=== PATIENT | male | born 1950 | race Caucasian/White ===

== ENCOUNTER 2023-01-25 19:41 | Inpatient (IN) | payer MEDICARE, OTHER ==
[~2023-01-25] VITALS: Ht 175.3 cm; Wt 72.5 kg
[2023-01-25 20:45] LABS: BASOPHILS ABSOLUTE AUTO 0.02 K/mm3 (0.00-0.23); BASOPHILS PERCENT AUTO 0 % (0-2); EOSINOPHILS PERCENT AUTO 0 % (0-6); Hematocrit 45.2 % (37.0-53.0); Hemoglobin 15.4 g/dL (13.5-17.5); IMMATURE GRAN ABSOLUTE AUTO 0.03 K/mm3 (0.00-0.10); IMMATURE GRAN PERCENT AUTO 0 % (0-1); LYMPHOCYTES ABSOLUTE AUTO 1.03 K/mm3 (0.84-5.20); LYMPHOCYTES PERCENT AUTO 9 % (21-46); MONOCYTES ABSOLUTE AUTO 1.25 K/mm3 (0.16-1.47); MONOCYTES PERCENT AUTO 11 % (4-13); Mean Corpuscular HGB 31.9 pg (26.0-34.0); Mean Corpuscular HGB Conc 34.1 g/dL (31.5-36.5); Mean Corpuscular Volume 94 fL (80-100); Mean Platelet Volume 11.2 fL (9.1-12.4); NEUTROPHILS ABSOLUTE AUTO 8.84 K/mm3 (1.96-9.15); NEUTROPHILS PERCENT AUTO 79 % (41-73); Platelet Count 300 K/mm3 (150-400); RDW Standard Deviation 52.3 fL (35.1-46.3); Red Blood Cell Count 4.83 M/mm3 (4.30-5.90); White Blood Cell Count 11.17 K/mm3 (4.00-11.30)
[2023-01-25 20:57] LABS: Ethanol (Alcohol), Blood, Med <3 mg/dL
[2023-01-25 21:23] LABS: Alanine Aminotransfer (ALT/SGP 97 U/L (12-78); Albumin, Blood 3.4 g/dL (3.4-5.0); Albumin/Globulin Ratio 0.9 (0.8-1.8); Alk Phos 57 U/L (50-136); Anion Gap 11 mmol/L (6-16); Aspartate Aminotrans (AST/SGOT 232 U/L (12-37); Bilirubin, Total 1.4 mg/dL (0.1-1.0); Blood Urea Nitrogen 28 mg/dL (8-24); Bun/Creatinine Ratio 13.5 (12.0-20.0); CO2, Blood 23 mmol/L (21-32); Calcium, Blood 9.1 mg/dL (8.5-10.1); Chloride, Blood 107 mmol/L (98-108); Creatinine, Blood 2.07 mg/dL (0.60-1.20); Globulin, Blood 3.8 g/dL (2.2-4.0); Glomerular Filtration Rate 34 (60-); Glucose, Blood 130 mg/dL (70-99); Potassium, Blood 3.6 mmol/L (3.5-5.5); Sodium, Blood 141 mmol/L (136-145); Total Protein, Blood 7.2 g/dL (6.4-8.2)
[2023-01-25 21:25] LABS: Acetaminophen, Random <2.0 ug/mL (10.0-30.0)
[2023-01-25] MEDS ORDERED: FLUO10 PO (22:05)
[2023-01-25] MEDS ORDERED: FENOFIBRATE PO (22:06)
[2023-01-25 23:50] LABS: International Normalized Ratio 1.14; Prothrombin Time Results 11.9 Sec (9.7-11.5)
[2023-01-26] VITALS (75 sets, daily range): BP systolic 47–170; BP diastolic 18–136
[2023-01-26 00:34] LABS: Bun/Creatinine Ratio 15.8 (12.0-20.0); Calcium, Blood 8.4 mg/dL (8.5-10.1); Creatinine, Blood 1.84 mg/dL (0.60-1.20)
[2023-01-26 01:09] LABS: Magnesium, Blood 1.7 mg/dL (1.6-2.4); Phosphorus, Blood 3.3 mg/dL (2.5-4.9)
[2023-01-26 04:11] LABS: BASOPHILS ABSOLUTE AUTO 0.03 K/mm3 (0.00-0.23); BASOPHILS PERCENT AUTO 0 % (0-2); EOSINOPHILS ABSOLUTE AUTO 0.01 K/mm3 (0.00-0.68); EOSINOPHILS PERCENT AUTO 0 % (0-6); Hematocrit 39.2 % (37.0-53.0); Hemoglobin 13.4 g/dL (13.5-17.5); IMMATURE GRAN ABSOLUTE AUTO 0.03 K/mm3 (0.00-0.10); IMMATURE GRAN PERCENT AUTO 0 % (0-1); LYMPHOCYTES PERCENT AUTO 21 % (21-46); MONOCYTES ABSOLUTE AUTO 0.66 K/mm3 (0.16-1.47); MONOCYTES PERCENT AUTO 8 % (4-13); Mean Corpuscular HGB 32.2 pg (26.0-34.0); Mean Corpuscular HGB Conc 34.2 g/dL (31.5-36.5); Mean Corpuscular Volume 94 fL (80-100); NEUTROPHILS ABSOLUTE AUTO 5.99 K/mm3 (1.96-9.15); NEUTROPHILS PERCENT AUTO 70 % (41-73); Platelet Count 206 K/mm3 (150-400); RDW Coefficient Variation 14.9 % (11.7-14.2); RDW Standard Deviation 51.9 fL (35.1-46.3); Red Blood Cell Count 4.16 M/mm3 (4.30-5.90); White Blood Cell Count 8.52 K/mm3 (4.00-11.30)
[2023-01-26 04:27] LABS: International Normalized Ratio 1.24; Prothrombin Time Results 12.9 Sec (9.7-11.5)
[2023-01-26 04:37] LABS: Albumin, Blood 2.5 g/dL (3.4-5.0); Albumin/Globulin Ratio 0.8 (0.8-1.8); Bun/Creatinine Ratio 19.2 (12.0-20.0); Calcium, Blood 8.2 mg/dL (8.5-10.1); Creatinine, Blood 1.46 mg/dL (0.60-1.20); Total Protein, Blood 5.5 g/dL (6.4-8.2)
[2023-01-26 07:12] LABS: U Amphetamine Screen Not Detected; U Barbituate Screen Not Detected; U Benzodiazapine Screen DETECTED; U Buprenorphine Screen Not Detected; U Cannabinoids Screen DETECTED; U Cocaine Screen Not Detected; U Methadone Screen Not Detected; U Methamphetamine Screen Not Detected; U Opiates Screen Not Detected; U Oxycodone Screen Not Detected; U Phencyclidine Screen Not Detected
--- NOTE | 2023-01-26 07:26 | NUR ---
END OF SHIFT SUMMARY PT COOPERATIVE WITH CARE. NO RESTRAINTS AT THIS TIME. PT DROWSY WHEN TRANSFERED TO ICU ROOM, HAS BECOME MORE ORIENTED SINCE. THIS AM SPEECH IS NOT SLURRED. BARRIGA CATHETER PLACED D/T PT UNSTABLE ON FEET AND STATES HE CAN NOT URINATE LAYING IN BED. MULTIPLE TRIES FOR URINE FAILED. BLADDER SCAN SHOWED 745 MLS THIS AM. TEA COLORED URINE PRESENT UPON INSERTION OF CATH. PRECEDEX AT 0.4 MCG THIS AM. KCL RUNNING WITH TKO TO POWER GLIDE. ACETALCYSTEIN 3RD BAG RUNNING AT THIS TIME. SEE FULL ASSESSMENT AND PRIOR RN NOTES FOR MORE INFORMATION. REPORT GIVEN TO AM RN.
[2023-01-26 08:20] LABS: Influenza A, PCR NEGATIVE (NEGATIVE); Influenza B, PCR NEGATIVE (NEGATIVE); Resp Syncytial Virus, PCR NEGATIVE (NEGATIVE); SARS-Cov-2 (COVID-19) PCR, MMC NEGATIVE (NEGATIVE)
--- NOTE | 2023-01-26 09:48 | NUR ---
HYPOTENSION PT HAS BEEN HYPOTENSIVE WITH SYSTOLIC IN THE 50S AND 60S, MAP IN THE 50S. WHEN PT IS WOKEN UP HIS SBP GOES UP TO THE LOW 100S, BUT DROPS AGAIN ONCE HE FALLS ASLEEP. DR. CASTRO NOTIFIED AND ORDERED 500ML NS BOLUS. BP IMPROVED WITH BOLUS, BUT SLOWLY DROPPED AGAIN AFTER IT COMPLETED. DR. CASTRO NOTIFIED AND ORDERED 1L NS BOLUS WITH MAINTENANCE FLUIDS AFTER AT 125ML/HR. POISON CONTROL CALLED AND GIVEN UPDATE. NO NEW RECOMMENDATIONS AT THIS TIME.
--- NOTE | 2023-01-26 11:57 | NUR ---
REASSESSMENT PT HAS CONTINUED TO REST THROUGHOUT THE MORNING. HE WAKES TO VOICE, IS ORIENTED TO SELF AND PLACE, THOUGHT THE YEAR WAS 2021. HE HAS BEEN COOPERATIVE WITH NURSING STAFF, BUT REFUSING A LOT OF CARES. HE WAS SHIVERING AT ONE POINT, BUT THAT RESOLVED WITH WARM BLANKETS AND PT STATED HE WAS COLD AT THAT TIME. WHEN HE HAS HELD HIS ARMS UP THERE DOES APPEAR TO BE A SLIGHT TREMOR, BUT UNABLE TO DO CIWAA BECAUSE PT DOESN'T WANT TO ANSWER THE QUESTIONS. PRECEDEX HAS REMAINED OFF SINCE THE START OF SHIFT. HR IN THE 50S, SINUS, BP IMPROVED AFTER BOLUS AND START OF MAINTENANCE FLUIDS. CURRENTLY MAP 67. CYRIL WAS VERY DARK AT START OF SHIFT AND IS GETTING SUPERVISOR WOOL SHEARING. LUNGS REMAIN CLEAR, SPO2 99% ON RA. OFFERED PT TO TRIAL SOME WATER, BUT PT REFUSED. PT STILL REFUSING TO ANSWER ANY OF THE SUICIDE ASSESSMENT QUESTIONS. REMAINS ON 1:[address] HERNANDEZ ROUNDED ON PT, BUT PT WOULDN'T TALK WITH HIM EVEN THOUGH HE INITALLY SAID HE WOULD. DR. HERNANDEZ REPORTS THOUGH THAT PT DID SAY HE TOOK THE XANAX TO . PT'S HEATHER BRUNO CALLED AND PT GAVE VERBAL PERMISSION TO TALK TO HER SO SHE WAS GIVEN UPDATE. HER INFORMATION WAS PROVIDED TO DR. HERNANDEZ WELL.
[2023-01-26 13:12] LABS: Bun/Creatinine Ratio 18.6 (12.0-20.0); Calcium, Blood 7.8 mg/dL (8.5-10.1); Creatinine, Blood 1.29 mg/dL (0.60-1.20); Potassium, Blood 3.1 mmol/L (3.5-5.5)
--- NOTE | 2023-01-26 13:23 | NUR ---
RESTRAINTS PT WOKE UP AND STARTED SAYING HE WANTS TO LEAVE. HOSPITAL HOLD EXPLAINED TO PT AND THAT IF HE LEAVES THE POLICE WILL BE CALLED TO BRING HIM BACK. PT RESPONDED "IF THEY CAN FIND ME." PT CONTINUED TO GET MORE AGITATED, SAYING HE DOESN'T WANT ANY CARE, HE REFUSES EVERYTHING, HE WANTS TO BE DNR. EXPLAINED TO PT THAT WITH THE HOLD HE DOESN'T HAVE THE RIGHT TO REFUSE ALL CARE. PT STATES THAT HE WILL NOT EAT OR DRINK ANYTHING THEN SO HE WILL OF DEHYDRATION. DR. CASTRO ROUNDED ON PT DURING THIS AND GAVE ORDERS TO RESTART PRECEDEX, WHICH IT WAS. PT REALIZED HE HAD FLUDIS INFUSING THROUGH THE IV THEN THOUGH AND REACHED TO PULL OUT HIS IVS. PT'S ARM HELD BACK FROM IV, BUT PT KEPT ACTIVELY TRYING TO REACH FOR IVS, BECOMING MORE AGITATED, TOLD STAFF WE CAN TRY TO RESTRAIN HIM, BUT IT'S NOT GOING TO BE PRETTY. PT DOES SAY THAT HE DOESN'T WANT TO HURT ANYBODY, BUT HE IS ADAMANT HE DOES NOT WANT ANY CARE BECAUSE HE WANTS TO . SECURITY NOTIFIED BECAUSE PT KEPT REACHING FOR IVS AND RESISTING WHEN ARMS PULLED BACK. PT PLACED IN LOCKED CUFFS DUE TO HIS STRENGTH. PT'S HEATHER BRUNO NOTIFIED. CONTINUING TO MONITOR.
[2023-01-26 14:01] LABS: Albumin, Blood 2.2 g/dL (3.4-5.0); Albumin/Globulin Ratio 0.8 (0.8-1.8); Bilirubin, Direct 0.4 mg/dL (0.0-0.3); Bilirubin, Indirect 0.5 mg/dL (0.1-0.7); Bilirubin, Total 0.9 mg/dL (0.1-1.0); Globulin, Blood 2.7 g/dL (2.2-4.0); Total Protein, Blood 4.9 g/dL (6.4-8.2)
--- NOTE | 2023-01-26 16:59 | NUR ---
SHIFT SUMMARY PT RESTED THROUGH THE MORNING WITHOUT ANY PRECEDEX BUT THEN BECAME VERY AGITATED AND TEARFUL AROUND NOON WANTING TO STOP ALL TREATMENT AND LEAVE THE HOSPITAL. PT TRIED TO PULL HIS IVS OUT AND ENDED UP REQUIRING WRIST RESTRAINTS. PRECEDEX WAS RESTARTED, BUT PT'S BP DROPS WHEN IT IS TOO HIGH SO IT HAD TO BE TITRATED DOWN TO A LOW DOSE THROUGHOUT THE AFTERNOON. AFTER TURNING PT AT 1600 HE BECAME VERY AGITATED AGAIN, SITTING UP WITH HIS ARMS STILL RESTRAINED AND THREATENING TO TRY AND FLIP THE BED OVER IN ORDER TO HURT HIMSELF. PT IS NOT REDIRECTABLE. EVEN IN HIS AGITATION HE APPEARS VERY SAD WITH TEARS IN HIS EYES HE IS TALKING ABOUT HOW HE WANTS TO . SECURITY NOTIFIED AND PT PULLED BACK UP IN BED, WHICH PT PROMPTLY SCOOTED BACK TO THE FOOT OF THE BED. PT ENDED UP REQUIRING 4 POINT RESTRAINTS IN ORDER TO KEEP HIM SAFE. PRN ZYPREXA GIVEN WELL TO HELP RELAX PT. 1:1 SITTER REMAINS AT THE BEDSIDE. LUNGS REMAIN CLEAR, RA, SR TO SB WITH RATE IN THE 50S AND 60S. BARRIGA DRAINING YELLOW URINE. CONTINUING TO MONITOR.
[2023-01-26 22:39] LABS: Bun/Creatinine Ratio 18.9 (12.0-20.0); Calcium, Blood 8.1 mg/dL (8.5-10.1); Creatinine, Blood 1.11 mg/dL (0.60-1.20); Potassium, Blood 3.4 mmol/L (3.5-5.5)
[2023-01-27] VITALS (53 sets, daily range): BP systolic 101–170; BP diastolic 59–96
[2023-01-27 00:21] LABS: Source, Urine Foley catheter
[2023-01-27 00:25] LABS: Bilirubin, Urine Neg (Neg); Blood, Urine 1+ (Neg); Glucose Qualitative, Urine Neg (Neg); Ketones, Urine Neg (Neg); Leukocyte Esterase, Urine 3+ (Neg); Nitrite, Urine Neg (Neg); Protein, Urine 1+ (Neg); Urobilinogen, Urine 2+ (Normal)
[2023-01-27 00:40] LABS: Appearance, Urine Hazy (Clear); Color, Urine Yellow (P-Yellow)
[2023-01-27 00:42] LABS: Bacteria Mod /hpf; Mucus Light (0-Heavy); Red Blood Cells, Urine 0-2 /hpf (0-2); Squamous Epithelial Cells Few /hpf (Few); White Blood Cells, Urine 25-50 /hpf (0-5)
--- NOTE | 2023-01-27 05:15 | NUR ---
SHIFT SUMMERY PT HAS BEEN INTERMITTENTLY AGITATED, CONSISTANTLY RESISTANT/NON-COMPLIANT/REFUSING CARE, OCCASIONALLY VERBALLY INAPPROPRIATE AND PERIODICALLY THREATENING VIOLENCE. 1:1 SITTER EV[place]ON PRESENT THIS SHIFT. PT CONTININUES IN RESTRAINTS, SEE CHARTING. PT DAUGHTER CALLED EARLIER IN THE SHIFT AND I FACILITATED A PHONE CONVERSATION FOR THEM. PT HAS STATED THAT HE WANTS TO MULTIPLE TIMES. HE ALSO STATED THAT HE WOULD USE VIOLENCE OR ANY MEANS NECESSARY TO LEAVE THIS HOSPITAL. PT HAS REFUSED MOUTHCARE AND REPOSITIONING. HE BECOMES VERY HOSTILE AND AGITIATED W/ANY STIMULATION. HE HAS BEEN ON A PRECEDEX DRIP THIS SHIFT W/PRN ZYPREXA GIVEN ONCE. HE HAS BEEN SB ON THE BOILER ATTENDANT W/BP WNL. OXYGEN SAT >95% ON ROOM AIR. HE HAS BEEN AFEBRILE. POISON CONTROL HAS CALLED AND BEEN UPDATED ON PT CONDITION. PT IS ALERT AND ORIENTED TO SELF AND SITUATION. HE OFTEN REFUSES TO ANSWER QUESTIONS AND LIKES TO INSTIGATE ARGUMENTS WITH STAFF WHEN ENGAGED IN CONVERSATION. PT HAS BARRIGA CATH INTACT PATENT AND DRAINING TO GRAVITY. HE HAS DENIED PAIN THIS SHIFT. PT DAUGHTER STATED THAT SHE WOULD COME AND VISIT PT LATER TODAY.
[2023-01-27 06:38] LABS: BASOPHILS ABSOLUTE AUTO 0.02 K/mm3 (0.00-0.23); BASOPHILS PERCENT AUTO 0 % (0-2); EOSINOPHILS ABSOLUTE AUTO 0.19 K/mm3 (0.00-0.68); EOSINOPHILS PERCENT AUTO 3 % (0-6); IMMATURE GRAN ABSOLUTE AUTO 0.01 K/mm3 (0.00-0.10); IMMATURE GRAN PERCENT AUTO 0 % (0-1); LYMPHOCYTES ABSOLUTE AUTO 1.75 K/mm3 (0.84-5.20); LYMPHOCYTES PERCENT AUTO 30 % (21-46); MONOCYTES ABSOLUTE AUTO 0.41 K/mm3 (0.16-1.47); MONOCYTES PERCENT AUTO 7 % (4-13); Mean Corpuscular HGB 32.2 pg (26.0-34.0); Mean Corpuscular HGB Conc 34.3 g/dL (31.5-36.5); Mean Corpuscular Volume 94 fL (80-100); Mean Platelet Volume 11.3 fL (9.1-12.4); NEUTROPHILS ABSOLUTE AUTO 3.45 K/mm3 (1.96-9.15); NEUTROPHILS PERCENT AUTO 59 % (41-73); Platelet Count 185 K/mm3 (150-400); RDW Coefficient Variation 14.8 % (11.7-14.2); RDW Standard Deviation 51.6 fL (35.1-46.3); Red Blood Cell Count 3.73 M/mm3 (4.30-5.90); White Blood Cell Count 5.83 K/mm3 (4.00-11.30)
[2023-01-27 07:01] LABS: Albumin, Blood 2.1 g/dL (3.4-5.0); Albumin/Globulin Ratio 0.8 (0.8-1.8); Bilirubin, Total 0.7 mg/dL (0.1-1.0); Bun/Creatinine Ratio 19.8 (12.0-20.0); Calcium, Blood 8.2 mg/dL (8.5-10.1); Creatinine, Blood 1.01 mg/dL (0.60-1.20); Globulin, Blood 2.5 g/dL (2.2-4.0); Potassium, Blood 3.9 mmol/L (3.5-5.5); Total Protein, Blood 4.6 g/dL (6.4-8.2)
--- NOTE | 2023-01-27 07:47 | NUR ---
CARE OF PATIENT ASSUMED AT 0700. PT SEDATED ON PRECEDEX AT 0.5MCG/KG/HR. D51/2 NS AT 75. PT WAS INITIALLY SLEEPING, PT OPENED HIS EYES, WHEN APPROCHED AND ASKED PT IF HE WAS THIRSTY OR HUNGRY, PT STATED "I PREFER TOTAL SILENCE". ATTEMPTED TO DISCUSS PLAN OF CARE WITH PT INCLUDING WEANING PRECEDEX OFF AND REMOVING RESTRAINTS. PT STATED, "NO, I'M FINE JUST LIKE THIS, IM NOT GOING TO EAT OR DRINK, IM JUST GOING TO LAY HERE AND ". PT REFUSED TO ANSWER MOST QUESTIONS, BUT STATED HE DIDNT WANT TO BE "POKED". PT SINUS NATALI IN HIGH 40'S WHILE SLEEPING, 50'S WHILE AWAKE. BP STABLE. BARRIGA CATH PATENT DRAINING DARK YELLOW URINE. POTASSIUM WAS REPLACED ON TAR DISTILLATION SUPERVISOR. POWERGLIDE AND PERIPHERAL IV'S PATENT.
--- NOTE | 2023-01-27 08:46 | NUR ---
I SPOKE WITH THE PATIENT FOR 45MIN. RESTRAINTS WERE REMOVED, PT STATED THAT HE WOULDNT REMOVE HIS IV'S OR BARRIGA ON HIS OWN, AND THAT HE WOULDNT TRY AND LEAVE THE HOSPITAL. PT IN EMOTIONAL DISTRESS, CRYING/TEARFUL OVER THE PASSING OF HIS . HE IS ANGRY AT HIS DAUGHTER FOR CALLING THE POLICE. PT ASKED WHAT HE COULD DO TO GET OUT OF THE HOSPITAL, HE WAS INFORMED HE WOULD NEED TO SPEAK WITH THE PSYCHIATRIST. PT STATED "I WILL SAY WHAT EVER THE F I NEED TO TO GET OUT OF HERE, THEN IM GOING TO KILL MYSELF AND THERE ISNT ANYTHING ANYONE CAN DO TO STOP ME".
--- NOTE | 2023-01-27 09:02 | NUR ---
POISON CONTROL CALLED AND GIVEN AN UPDATE; NO FURTHER RECOMMENDATIONS FROM THEM. DR SPENCER IN TO SEE PT, PT REFUSED TO SPEAK WITH HER OR LET HER EXAM HIM. DR HERNANDEZ/PSYCHIATRY AT BEDSIDE NOW. PT HAS 1:1 SITTER.
[2023-01-27] MEDS ORDERED: TRAZ50 PO (10:32)
[2023-01-27] MEDS ORDERED: OMEP20ER PO (10:32)
[2023-01-27] MEDS ORDERED: AMLO5 PO (10:33)
--- NOTE | 2023-01-27 10:48 | NUR ---
MED LIST UPDATED, INFORMATION OBTAINED FROM PT'S DAUGHTER. DR HERNANDEZ IS RECOMMNEDING IN PATIENT CARE; FIELD BROOMER AND MDS NURSE NOTIFED. PT STATED HE DRINKS 1/2 LITER+ VODKA DAILY, CIWA 8. DR SPENCER NOTIFED, ATIVAN ORDERED PRN. PT IS ALLOWING SOME CARE AND REFUSING SOME CARE WELL. PT IS DRINKING WATER AND HAS ASKED FOR WARM BLANKETS WHICH WERE PROVIDED.
--- NOTE | 2023-01-27 13:07 | NUR ---
PT REFUSED SHOWER/BEDBATH, LUNCH, ORAL CARE. PT DID ALLOW VITALS TO BE TAKEN, AND STATES HE WILL TAKE HIS HOME MEDS. PT DECLINED LIBRIUM. 1:1 SITTER REMAINS AT BEDSIDE.
--- NOTE | 2023-01-27 14:11 | NUR ---
PATIENT MAKING INAPPROPRIATE SEXUAL COMMENTS TOWARD SITTER. PT STATES, "I'M GOING TO SHIT THIS BED, AND YOU'LL HAVE TO CLEAN IT UP".
--- NOTE | 2023-01-27 15:09 | NUR ---
PT ESCALATING; PT HELD PILLOW OVER HIS HEAD, PILLOW REMOVED. PT THEN THREATENED TO SUFFICATE HIMSELF BETWEEN BED RAILING AND MATTRESS. 1MG INITIALLY ATIVAN PULLED BUT NOT GIVEN PT MADE THREATENING REMARKS; HARMING STAFF IF WE GOT TOO CLOSE TO HIM. PT ABLE TO STATE NAME AND YEAR, BUT MAKING SEVERAL IRRATIONAL STATEMENTS, PT RED AND SHAKING W FIST CLENCHED. PT AGAIN STATING THAT HE WAS GOING TO KILL HIMSELF AND THERE WASNT ANYTHING WE COULD DO TO STOP HIM. PT FORGETFUL, DID NOT REMEMBER ME, HIS PRIMARY RN WHO HAS SPENT HOURS IN HIS ROOM TODAY. PT ANGRY THAT HIS PCP HAS NOT BEEN BY TO SEE HIM(WE SPOKE ABOUT WHY HIS PCP HASNT BEEN IN TODAY), PT DOES NOT REMEMBER DR SPENCER COMING IN TODAY. PT STATES HE'S UPSET THAT HIS FARM IS DYING AT HOME AND NO ONE IS TAKING CARE OF IT, AND IN THE SAME RUN-ON SENTENCE HE STATES THAT HE IS GOING TO KILL HIMSELF. DR SPENCER CALLED, FULL UPDATE GIVEN ATIVAN ORDERS CHANGED TO 1-2 Q 1HR. PRECEDEX TO BE RESTARTED. DR HERNANDEZ CALLED AND UPDATED WELL. DR HERNANDEZ RECOMMENDING ATIVAN FOR SEVERE AGITATION. SECURITY CALLED TO BE AT BEDSIDE TO BE AVAILABLE IF NEEDED. PT ALLOWED ME TO ADMINISTER ATIVAN 2MG AND ALLOWED ME TO START PRECEDEX GTT. JUST PRIOR TO IV ADMINISTRATION PATIENT STATED, "I PROMISE I WILL NOT HURT YOU, YOU CAN GIVE ME THE MEDICATION." PT THEN STARTED CRYING ABOUT HIS DENITA WHO IN NOVEMBER, PATIENT ALLOWED TO CRY AND TALK ABOUT HIS GRIEF. PT THEN ALLOWED MYSELF AND ANOTHER RN TO GIVE A BEDBATH. LINEN'S CHANGED. CATH CARE COMPLETE.
--- NOTE | 2023-01-27 17:38 | NUR ---
PT SLEEPING, AWAKENS TO VOICE, RASS 0 TO -1. HEATRATE IN THE 50'S, OCC DROPS TO 48. BP STABLE. SATS 96% ON RA. PRECEDEX GTT DECREASED FROM 0.5MCG TO 0.3MCG. PT HAS BEEN OUT OF RESTRAINTS SINCE 0800 THIS AM. D51/2NS CONTINUES AT 75CC/HR. DR HERNANDEZ CALLED TO CHECK ON PT AND GIVEN UPDATE. CIWA 6-8 TODAY, MOSTLY FOR AGITATION AND TREMORS. 1:1 SITTER REMAINS AT BEDSIDE.
--- NOTE | 2023-01-27 19:19 | NUR ---
ASSUMPTION OF CARE PT IS CURRENTLY RESTING COMFORTABLY W/EYES CLOSED. 1:1 SITTER AT BEDSIDE, FRANCINE. PT IS SB ON THE TEACHER PRESCHOOL, BP WNL. NO ACUTE DISTRESS NOTED AT THE CURRENT TIME. WILL CONTINUE TO MONITOR.
--- NOTE | 2023-01-27 19:34 | NUR ---
ASKED PT IF HE NEEDED ANYTHING AT THIS TIME, PT STATED "JUST PEACE AND QUIET". 1:1 SITTER REMAINS AT BEDSIDE. WILL CONTINUE TO MONITOR.
--- NOTE | 2023-01-27 20:51 | NUR ---
PT DAUGHTER JONATHAN CALLED AND WAS UPDATED ON PT CONDITION. DAUGHTER EXPRESSED GRATITUDE FOR CARE GIVEN TO HER FATHER.
--- NOTE | 2023-01-27 21:43 | NUR ---
PT BECOMING INCREASINGLY AGITATED AND TEARFUL. HE IS QUITE ANGRY. STATED THAT I WAS USELESS AND THAT HE WOULD FINISH THE JOB OF KILLING HIMSELF SOON HE WAS ABLE. PT THREATEND TO PULL OUT HIS IV'S AND I EDUCATED HIM THAT IF HE DID THAT HE WOULD BE PLACED BACK INTO RESTRAINTS PER MD ORDER. HE WAS GIVEN PRN ATIVAN FOR ETOH WDRAWAL HE IS ALSO TREMULOUS W/SOME CONFUSION. PRECEDEX DRIP WAS INCREASED-SEE FLOWSHEET. I APPEMPTED TO CALM AND REDIRECT PATIENT BUT HE IS NOT RECEPTIVE TO ENCOURAGEMENT OR EMOTIONAL SUPPORT/EMPATHY AT THIS TIME. MCKENNA ESCAMILLA REMAINS AT BEDSIDE 1:1.
[2023-01-28] VITALS (23 sets, daily range): BP systolic 119–168; BP diastolic 71–110
--- NOTE | 2023-01-28 00:19 | NUR ---
PT HAS BECOME MORE CALM SINCE GETTING PRN MEDICATION-SEE EMAR. HE STILL REFUSES TO EAT OR DRINK ANYTHING STATING HE IS ON A "HUNGER STRIKE". HE IS RESTING COMFORTABLY W/EYES CLOSED. 1:1 SITTER AT BEDSIDE. VSS
[2023-01-28 05:10] LABS: BASOPHILS ABSOLUTE AUTO 0.04 K/mm3 (0.00-0.23); BASOPHILS PERCENT AUTO 1 % (0-2); EOSINOPHILS ABSOLUTE AUTO 0.45 K/mm3 (0.00-0.68); EOSINOPHILS PERCENT AUTO 7 % (0-6); Hematocrit 36.7 % (37.0-53.0); Hemoglobin 12.6 g/dL (13.5-17.5); IMMATURE GRAN ABSOLUTE AUTO 0.02 K/mm3 (0.00-0.10); IMMATURE GRAN PERCENT AUTO 0 % (0-1); LYMPHOCYTES ABSOLUTE AUTO 1.74 K/mm3 (0.84-5.20); LYMPHOCYTES PERCENT AUTO 27 % (21-46); MONOCYTES ABSOLUTE AUTO 0.43 K/mm3 (0.16-1.47); MONOCYTES PERCENT AUTO 7 % (4-13); Mean Corpuscular HGB 32.2 pg (26.0-34.0); Mean Corpuscular HGB Conc 34.3 g/dL (31.5-36.5); Mean Corpuscular Volume 94 fL (80-100); Mean Platelet Volume 11.6 fL (9.1-12.4); NEUTROPHILS ABSOLUTE AUTO 3.71 K/mm3 (1.96-9.15); NEUTROPHILS PERCENT AUTO 58 % (41-73); Platelet Count 179 K/mm3 (150-400); RDW Coefficient Variation 14.4 % (11.7-14.2); RDW Standard Deviation 49.2 fL (35.1-46.3); Red Blood Cell Count 3.91 M/mm3 (4.30-5.90); White Blood Cell Count 6.39 K/mm3 (4.00-11.30)
[2023-01-28 06:00] LABS: Albumin, Blood 2.2 g/dL (3.4-5.0); Albumin/Globulin Ratio 0.8 (0.8-1.8); Bilirubin, Total 0.9 mg/dL (0.1-1.0); Bun/Creatinine Ratio 14.6 (12.0-20.0); Calcium, Blood 8.4 mg/dL (8.5-10.1); Creatinine, Blood 0.89 mg/dL (0.60-1.20); Globulin, Blood 2.7 g/dL (2.2-4.0); Potassium, Blood 3.3 mmol/L (3.5-5.5); Total Protein, Blood 4.9 g/dL (6.4-8.2)
--- NOTE | 2023-01-28 06:22 | NUR ---
PT HAS HAD NO ACUTE CHANGES OVERNIGHT. VSS, LABILE EMOTIONAL STATE WITH CLEAR INTENT AND PLANS ON SUICIDE VOICED. PRECEDEX INFUSING AND PRN MEDICATION USED WELL-SEE EMAR. 1:1 SITTER AT BEDSIDE.
--- NOTE | 2023-01-28 08:23 | NUR ---
CARE OF PT ASSUMED AT 0700. PT SLEEPING, AWAKENS TO VOICE, FOLLOWS DIRECTIONS, BUT NON-VERBAL AT THIS TIME. HEART RATE 40'S, PRECEDEX DECREASED FROM 0.5MCG TO 0.3MCG. PT TURNING HIMSELF FROM SIDE TO SIDE IN BED. D51/2NS AT 75CC/HR. POTASSIUM RIDER 40MEQ INFUSING. PT WITH SOME HTN, HAS HOME NORVASC ORDERED. PT HAS BEEN REFUSING SOME CARE, REFUSING MEALS, WILL OCCASIONALLY DRINK WATER. DR SPENCER AT BEDSIDE THIS AM. 1:1 SITTER AT BEDSIDE. SATS 97% ON RA, AFEBRILE. BARRIGA PATENT AND DRAINING TO GRAVITY.
--- NOTE | 2023-01-28 10:42 | NUR ---
PT IS NOW SPEAKING. PT CALM AND ALLOWING FOR SOME CARE. PT REFUSED LOVENOX AND NORVASC, "I WILL TAKE MY NORVASC WHEN YOU GIVE ME ALL OF MY HOME MEDS". PT DECLINED MEAL. PT STATED, "I PLAN TO BE ON MUCH BETTER BEHAVIOR TODAY, YOU'RE GOING TO LIKE ME TODAY." PT DECLINED FLUIDS OTHER THAN WATER AND MADE A JOKE THAT HE WOULD EXCEPT A DOUBLE SHOT OF VODKA. CIWA 0. PRECEDEX STOPPED AT 1040. DR HERNANDEZ AT BEDSIDE AND IS GOING TO START ZYPREXA S.L. PRN. PT AGREES TO TAKE THE MEDICATION IF HE STARTS "ACTING UP".
--- NOTE | 2023-01-28 12:12 | NUR ---
DR HERNANDEZ AT BEDSIDE FOR OVER 1HR. PT CALM AND COOPERATIVE, VERY TEARFUL. EMOTIONAL SUPPORT/COMFORT PROVIDED.
--- NOTE | 2023-01-28 15:54 | NUR ---
PATIENT MAY HAVE PSYCHIATRIC BED, PAPERS FAXED TO FACILITY BY STRATEGIC PARTNER DEVELOPMENT MANAGER. DR HERNANDEZ AND DR SPENCER UPDATED. PT SLIGHTLY MORE AGITATED, REQUEST TRAVEL RN OR. STRATEGIC PARTNER DEVELOPMENT MANAGER AT BEDSIDE TO GIVE PATIENT UPDATE REGARDING TRAVEL RN OR; PT NOTIFIED THAT REQUEST HAS BEEN MADE WITH COURT HOUSE. IV FLUIDS DC'D PATIENT IS DRINKING WATER. PT STILL REFUSING FOOD. PT DECLINED BATH TODAY. ATTEMPTED TO TAKE OUT BARRIGA, PATIENT REQUEST THAT IT BE LEFT IN SO THAT "I DONT HAVE TO GET OUT OF BED". URINAL OFFERED. WILL LEAVE IN BARRIGA FOR ANOTHER HOUR PATIENT BEGINNING TO BECOME AGITATED AND TEARFUL. 1:1 SITTER REMAINS AT BEDSIDE.
--- NOTE | 2023-01-28 17:10 | NUR ---
DR HERNANDEZ AT BEDSIDE, PATIENT INFORMED THAT THE PLAN IS TO TRANSFER PATIENT TO IN-PATIENT PSYCH FACILITY. PT INITIALLY ANGRY WITH PRESSURED SPEECH, RAISED VOICE, AND SHAKING. PT MORE CALM NOW BUT REMAINS UPSET. VISIBLE TREMORS TO ARMS NOTED, CIWA 5 FOR TREMORS, MILD AGITATION AND ANXIETY. PATIENT AGREED TO TAKE LIBRIUM. LINUS DC'D W/O DIFFICULTY. PT UP IN CHAIR. DR SPENCER CALLED AND GIVEN UPDATE. PT NOW MEDICAL STATUS.
[2023-01-28] MEDS ORDERED: ROSU10TA PO (17:36)
[2023-01-28] MEDS ORDERED: ALLO100 PO (17:36)
[2023-01-28] MEDS ORDERED: LOSA50 PO (17:37)
[2023-01-28] MEDS ORDERED: BUPR150ER PO (17:38)
--- NOTE | 2023-01-28 18:08 | NUR ---
PT BECAME MILDLY AGITATED WHILE SPEAKING ABOUT HIS DAUGHTER. TREMORS PRESENT; PT JOKINGLY ASKED FOR A "VODKA TONIC". ATIVAN OFFERED AND ACCEPTED. ATIVAN 1MG GIVEN. PT UP TO CHAIR AND UP TO TOILET FOR BM. MEDICATION LIST UPDATED AGAIN PT'S DAUGHTER FOUND NEW PRESCRIPTION PILL BOTTLES AT HOME. WILL HAVE AM RN FOLLOW UP WITH PCP REGARDING MED LIST.
[2023-01-28] MEDS ORDERED: METO50ER PO (18:25)
--- NOTE | 2023-01-28 19:26 | NUR ---
PRIOR TO CHANGE OF SHIFT REPORT I SAT WITH PATIENT AND LISTENED WHILE HE SPOKE OF HIS GRIEF AND ANXIETY OVER HIS "FINANCIAL RUIN". PT TEARFUL/CRYING. PT STATES I WAS KIND TO HIM BUT HE'LL "SEE ME IN THE AFTERLIFE, BECAUSE I'M GOING TO DO IT AND THERE IS NOTHING ANYONE CAN DO TO STOP ME. YOU CAN'T HOLD ME FOR EVER. THERE ARE SO MANY WAYS I CAN DO IT. I HAVE BOTTLES OF OXYCODONE, I WILL TAKE SO MANY PILLS AND GO OFF INTO THE [place] AND YOU'LL NEVER FIND ME. I WILL DO IT." DR HERNANDEZ CALLED AND WAS UPDATED. 1:1 SITTER AT BEDSIDE.
--- NOTE | 2023-01-28 21:17 | NUR ---
ASSUMPTION OF CARE: RECEIVED REPORT FROM SPARKLE WRIGHT. PT ALERT AND ORIENTED TO TIME, PERSON, PLACE AND SITUATION. ABLE TO ANSWER QUESTIONS AND MAKE NEEDS KNOWN. PT DENIES ANY SUICIDAL IDEATION WHEN ASKED. DURING CHANGE OF SHIFT HOWEVER, HE STATED TO THE PRIOR RN THAT HE WANTED TO TAKE A HANDFUL OF WHATEVER HE COULD GET HIS HANDS ON AND RUN OUT OF HERE. PT ALSO MAKING STATEMENTS REPEATEDLY STATING "I WISH I WAS ". PT HAS MILD TREMOR BILATERALLY, DENIES ANY HALLUCINATIONS, HEADACHE, N/V. PT ABLE TO TOLERATE PO MEDS WELL. PT ON RA WITH SPO2 >95%. DENIES SOB. PT DENIES ANY PAIN. PT MEDICAL STATUS WITH NO TELEMETRY. NO C/O CHEST PAIN OR PRESSURE. ABLE TO AMBULATE TO THE TOILET IND. 1:1 SITTER REMAINS AT THE DOOR. POWERGLIDE TO RJ, SALINE LOCKED. DAUGHTER CALLED FOR AN UPDATE, PT AGREEABLE TO TALKING TO DAUGHTER AT THIS TIME. BED LOW AND LOCKED.
[2023-01-29 03:27] LABS: BASOPHILS ABSOLUTE AUTO 0.03 K/mm3 (0.00-0.23); BASOPHILS PERCENT AUTO 0 % (0-2); EOSINOPHILS ABSOLUTE AUTO 0.29 K/mm3 (0.00-0.68); EOSINOPHILS PERCENT AUTO 4 % (0-6); Hemoglobin 12.1 g/dL (13.5-17.5); IMMATURE GRAN ABSOLUTE AUTO 0.03 K/mm3 (0.00-0.10); IMMATURE GRAN PERCENT AUTO 0 % (0-1); LYMPHOCYTES ABSOLUTE AUTO 1.58 K/mm3 (0.84-5.20); LYMPHOCYTES PERCENT AUTO 19 % (21-46); MONOCYTES ABSOLUTE AUTO 0.63 K/mm3 (0.16-1.47); MONOCYTES PERCENT AUTO 8 % (4-13); Mean Corpuscular HGB 32.2 pg (26.0-34.0); Mean Corpuscular HGB Conc 34.6 g/dL (31.5-36.5); Mean Corpuscular Volume 93 fL (80-100); Mean Platelet Volume 11.4 fL (9.1-12.4); NEUTROPHILS ABSOLUTE AUTO 5.58 K/mm3 (1.96-9.15); NEUTROPHILS PERCENT AUTO 69 % (41-73); Platelet Count 185 K/mm3 (150-400); RDW Standard Deviation 47.4 fL (35.1-46.3); Red Blood Cell Count 3.76 M/mm3 (4.30-5.90); White Blood Cell Count 8.14 K/mm3 (4.00-11.30)
[2023-01-29 03:57] LABS: Albumin, Blood 2.4 g/dL (3.4-5.0); Albumin/Globulin Ratio 0.8 (0.8-1.8); Bilirubin, Direct 0.5 mg/dL (0.0-0.3); Bilirubin, Indirect 0.6 mg/dL (0.1-0.7); Bilirubin, Total 1.1 mg/dL (0.1-1.0); Bun/Creatinine Ratio 9.9 (12.0-20.0); Calcium, Blood 8.7 mg/dL (8.5-10.1); Creatinine, Blood 0.81 mg/dL (0.60-1.20); Globulin, Blood 2.9 g/dL (2.2-4.0); Potassium, Blood 3.1 mmol/L (3.5-5.5); Thyroid Stimulating Hormone 2.65 uIU/mL (0.360-4.800); Total Protein, Blood 5.3 g/dL (6.4-8.2)
--- NOTE | 2023-01-29 06:19 | NUR ---
SHIFT SUMMARY: PT REMAINS ALERT AND ORIENTED TO TIME, PERSON, PLACE AND SITUATION. PT HAD A FEW EPISODES OF CONFUSION T/O THE SHIFT BUT WAS REDIRECTABLE. PT STATES "I WANT TO LEAVE THIS PLACE, YOU BETTER LOCK THE DOORS BECAUSE I WILL FIND A WAY OUT" FREQUENTLY THROUGHOUT THE SHIFT. DENIES SI THIS SHIFT. PT REMAINS ON RA WITH NO C/O SOB. PT MEDICAL STATUS WITH NO TELE. ABLE TO TOLERATE PO MEDS WITH WATER. PT HAS MILD TREMOR IN HANDS, DENIES HALLUCINATIONS, NO N/V, NO HEADACHE. ABLE TO AMBULATE TO THE BATHROOM WITH ASSISTANCE. PT NOT ABLE TO SLEEP WELL T/O THE SHIFT. VOIDING YELLOW URINE. SMALL BM THIS SHIFT. POWERGLIDE TO RJ, INFUSING. 1:1 SITTER REMAINS AT THE DOOR. BED LOW AND LOCKED.
[2023-01-29 06:54] VITALS: BP 163/87
[2023-01-29 08:56] VITALS: BP 151/84
--- NOTE | 2023-01-29 11:40 | NUR ---
PHONE CALL TO STEFAN AT [facility] FOR REPORT. INFORMATION GIVEN AND QUESTIONS ANSWERED. SECURE TRANSPORT HAS BEEN ARRANGED AND PT IS EXPECTED TO BE LEAVING AROUND 1300. PT CONTINUES WITH A SITTER AT THIS TIME AND APPEARS TO BE SLEEPING. TOOK HIS MEDICATION WITH HIS WATER THIS AM WITHOUT INCIDENT.
[2023-01-29 12:22] LABS: Influenza A, PCR NEGATIVE (NEGATIVE); Influenza B, PCR NEGATIVE (NEGATIVE); Resp Syncytial Virus, PCR NEGATIVE (NEGATIVE); SARS-Cov-2 (COVID-19) PCR, MMC NEGATIVE (NEGATIVE)
--- NOTE | 2023-01-29 12:52 | NUR ---
PT AWAKE AND VISITING WITH STAFF. HE IS TEARFUL AND REMORSEFUL, BEGGING AND BARGAINING SO NOT TO BE TRANSFERRED TO FACILITY [place]AR [place]. LISTENING AND ENCOURAGEMENT GIVEN. SITTER REMAINS AT BEDSIDE.
--- NOTE | 2023-01-29 13:40 | NUR ---
GURINDER HAD BEEN EXPRESSING HIS DISSATISFACTION WITH LEAVING AND WAS HAVING THERAPEUTIC COMMUNICATION WITH THE SITTER, WHO ENCOURAGED HIM TO NOT BEHAVE BADLY WITH THE PEOPLE TRANSPORTING HIM SINCE IT WASN'T THEIR FAULT HE WAS GOING. WHEN TRANSPORTER ARRIVED, PT WAS VERY PLEASANT AND COOPERATIVE. HE WAS ABLE TO TRANSFER TO THE RESTROOM, VOIDED AND WAS PLACED IN A PAPER SHIRT. HIS POWER GLIDE WAS REMOVED INTACT AND HE WAS TRANSPORTED TO THE VEHICLE VIA W/C WITH SECURITY ALONGSIDE.
--- NOTE | 2023-01-29 13:44 | NUR ---
CALL TO FACILITY TO LET THEM KNOW THAT PATIENT IS ON THE WAY.
== END 2023-01-29 13:30 | DRG 917 ==
LOC: ER 19:41 → ICUE 19:42 → EOR 19:42 → ICUE 01-26 00:26
PROVIDERS: Emergency Medicine; Family Medicine; ADMIT Student in an Organized Health Care Education/Training Program
PROC: HZ2ZZZZ Detoxification Services for Substance Abuse Treatment (ICD-10-PCS; principal; 2023-01-25)
DX: T42.4X2A Poisoning by benzodiazepines, intentional self-harm, initial encounter (principal); G92.8 Other toxic encephalopathy; N17.9 Acute kidney failure, unspecified; E87.0 Hyperosmolality and hypernatremia; M62.82 Rhabdomyolysis; F10.139 Alcohol abuse with withdrawal, unspecified; E87.6 Hypokalemia; D64.9 Anemia, unspecified; F32.A Depression, unspecified; R74.01 Elevation of levels of liver transaminase levels; I10 Essential (primary) hypertension; Z63.4 Disappearance and death of family member; Z78.1 Physical restraint status; Z88.5 Allergy status to narcotic agent
CPT/HCPCS: 0241U; 36415; 51702; 80048; 80053; 80076; 81001; 82140; 82248; 82550; 83735; 84100; 84443; 85025; 85610; 85730; 87086; 93005; 93010; 94762; 96361; 96365; 96365-59; 99285-25; A9270; C1751; G0378; G0480; J0132; J1650; J2060; J3411; J3480; J3486; J7030; J7040; J7042; J7050; J7060; J7070

== ENCOUNTER 2023-02-14 13:54 | Inpatient (IN) | payer MEDICARE, OTHER ==
[~2023-02-14] VITALS: Ht 185.4 cm; Wt 68.4 kg
[2023-02-14] VITALS (13 sets, daily range): BP systolic 102–162; BP diastolic 64–109
[~2023-02-14 13:54] MED LIST: ALLO100 PO; AMLO5 PO; BUPR150ER PO; FENO160 PO; LOSA50 PO; METO50ER PO; OMEP20ER PO; Prozac20 MG PO; ROSU10TA PO; TRAZ50 PO
[2023-02-14 14:32] LABS: BASOPHILS ABSOLUTE AUTO 0.13 K/mm3 (0.00-0.23); BASOPHILS PERCENT AUTO 2 % (0-2); EOSINOPHILS ABSOLUTE AUTO 0.24 K/mm3 (0.00-0.68); EOSINOPHILS PERCENT AUTO 3 % (0-6); Hematocrit 41.9 % (37.0-53.0); IMMATURE GRAN ABSOLUTE AUTO 0.01 K/mm3 (0.00-0.10); IMMATURE GRAN PERCENT AUTO 0 % (0-1); LYMPHOCYTES ABSOLUTE AUTO 2.44 K/mm3 (0.84-5.20); LYMPHOCYTES PERCENT AUTO 35 % (21-46); MONOCYTES ABSOLUTE AUTO 1.02 K/mm3 (0.16-1.47); MONOCYTES PERCENT AUTO 14 % (4-13); Mean Corpuscular HGB 31.8 pg (26.0-34.0); Mean Corpuscular HGB Conc 33.4 g/dL (31.5-36.5); Mean Corpuscular Volume 95 fL (80-100); Mean Platelet Volume 10.6 fL (9.1-12.4); NEUTROPHILS ABSOLUTE AUTO 3.23 K/mm3 (1.96-9.15); NEUTROPHILS PERCENT AUTO 46 % (41-73); Platelet Count 414 K/mm3 (150-400); RDW Coefficient Variation 14.5 % (11.7-14.2); RDW Standard Deviation 50.6 fL (35.1-46.3); White Blood Cell Count 7.07 K/mm3 (4.00-11.30)
[2023-02-14 15:00] LABS: Magnesium, Blood 1.7 mg/dL (1.6-2.4)
[2023-02-14 15:04] LABS: Albumin, Blood 3.6 g/dL (3.4-5.0); Albumin/Globulin Ratio 1.1 (0.8-1.8); Bilirubin, Total 0.7 mg/dL (0.1-1.0); Creatinine, Blood 0.91 mg/dL (0.60-1.20); Globulin, Blood 3.3 g/dL (2.2-4.0); Potassium, Blood 3.4 mmol/L (3.5-5.5); Thyroid Stimulating Hormone 1.26 uIU/mL (0.360-4.800); Total Protein, Blood 6.9 g/dL (6.4-8.2)
[2023-02-14 17:08] LABS: Acetaminophen, Random <2.0 ug/mL (10.0-30.0); Salicylate 2.3 mg/dL (2.8-20.0)
[2023-02-14 17:58] LABS: U Amphetamine Screen Not Detected; U Barbituate Screen Not Detected; U Benzodiazapine Screen DETECTED; U Buprenorphine Screen Not Detected; U Cannabinoids Screen DETECTED; U Cocaine Screen Not Detected; U Methadone Screen Not Detected; U Methamphetamine Screen Not Detected; U Opiates Screen Not Detected; U Oxycodone Screen Not Detected; U Phencyclidine Screen Not Detected
[2023-02-14] MEDS ORDERED: PANT40 PO (21:34)
[2023-02-14] MEDS ORDERED: THERA-D2000 UNIT PO (21:35)
[2023-02-14] MEDS ORDERED: Vitamin B-1250 MC1 PO (21:37)
[2023-02-14] MEDS ORDERED: FISH OIL 1,0001 EA10 PO (21:44)
[2023-02-14] MEDS ORDERED: MULTIPLE VITAM1 EACH PO (21:46)
[2023-02-15] VITALS (43 sets, daily range): BP systolic 101–172; BP diastolic 66–105
--- NOTE | 2023-02-15 00:07 | NUR ---
ARRIVAL TO ICU 12 PT ARRIVED VIA ED [place] [facility] WITH ED RN AT BEDSIDE. PT A/O TO SELF ONLY. YELLING AND MUMBLING. ABLE TO MAKE OUT ONE OR TWO WORDS AT A TIME. DOES NOT FOLLOW DIRECTIONS OR ANSWER QUESTIONS. UNABLE TO ASK SI QUESTIONS, MED REC, OR MEDICAL HISTORY. THRASHING IN BED. SOFT WRIST RESTRAINTS TO ALL EXTREMITIES. MEDICATED WITH ATIVAN AND HALDOL. VSS. SR RATE 60-90'S. HTN NOTED WHEN PT AGITATED. WNL WHEN PT CALM. PT BLADDER SCANNED WITH RESULT OF +999. PT STRAIGHT CATHED WITH 1100 OUT. PT CALM AND RESTING QUIETLY AFTER. BRUISING/REDNESS TO RIGHT SPIRITISM, KNEES, SHINS, AND LEFT HIP. PICTURES IN CHART. CALL FROM POISON CONTROL AND UPDATE GIVEN. NO NEW RECOMMENDATIONS AT THIS TIME. 1:1 SITTER AT BEDSIDE.
--- NOTE | 2023-02-15 01:57 | NUR ---
UPDATE PT YELLING OUT AND STATING " I HAVE TO PISS". ASKED PT TO TRY AND USE A URINAL WITH ASSISTANCE. PT STATED " NO IM GOING IN MY PANTS". WHEN ASKED PT FOR HIS NAME PT STATED " WHATS YOUR NAME?". WHEN ASKED WHERE HE IS RIGHT NOW PT STATED "HOSP[facility] IN [facility]". PT CONTINUED TO YELL OUT AND THRASH IN BED. TREMOR NOTED IN BUE. ATIVAN GIVEN PER EMAR. PT CLEANED UP AND POST VOID RESIDUAL IS ZERO. 1:1 SITTER AT BEDSIDE
[2023-02-15 04:01] LABS: Bun/Creatinine Ratio 10.6 (12.0-20.0); Calcium, Blood 8.6 mg/dL (8.5-10.1); Creatinine, Blood 0.75 mg/dL (0.60-1.20); Magnesium, Blood 2.3 mg/dL (1.6-2.4); Potassium, Blood 3.7 mmol/L (3.5-5.5)
--- NOTE | 2023-02-15 05:56 | NUR ---
SHIFT SUMMARY NO ACUTE EVENTS T/O NIGHT. PT MORE AWAKE THIS AM BUT WHEN ASKED ORIENTATION QUESTIONS PT STATES "I'M NOT GOING TO TELL YOU", AND "I WANT FUCKING WATER". PT EDUCATED ABOUT THE IMPORTANCE OF NEURO CHECKS. PT TURNED HEAD TO LEFT AND REMAINED SILENT. DENIED HEADACHE, OR HALLUCINATIONS. PT SAT UP IN BED AND PT PASSED SWALLOW EVAL. PT GIVEN SMALL SIPS OF WATER. PT WAS ABLE TO USE URINAL TO VOID. AFTER PT SCOOTED SELF DOWN IN BED AND CLOSED EYES. DID NOT ANSWER ANY OTHER QUESTIONS. 1:1 SITTER AT BEDSIDE. WILL REPORT OFF TO ONCOMING RN.
--- NOTE | 2023-02-15 07:31 | NUR ---
ASSUMED CARE I ASSUMED CARE OF THIS PATIENT AT 0715 FROM [facility] CARDONA. BEDSIDE REPORT COMPLETED. PATIENT LYING IN BED, WAKES INTERMITTENTLY TO ASK FOR WATER POLITELY. WHEN ATTEMPING TO SIT PATIENT UP IN BED TO PROVIDE WATER PATIENT STOPPED COOPERATING WITH CARE TO BOOST AND COMPLETE SHIFT ASSESSMENT. UNABLE TO PROVIDE WATER DUE TO PATIENT NOT SITTING UP IN BED. D5 1/2NS INF @ 75ML/HR. NO FAMILY ROR BELONGINGS AT BEDSIDE. SITTER PRESENT.
--- NOTE | 2023-02-15 09:06 | NUR ---
REFUSED BLOOD DRAW SUPPLIER ENGINEER TO BEDSIDE TO RECHECK SODIUM LEVEL. PATIENT REFUSED BLOOD DRAW AND BECAME VERBALLY IRRITATED WITH SUPPLIER ENGINEER AND NURSE. EDUCATED ON LOW SODIUM. PATIENT BECAME SILENT AND REFUSED TO SPEAK WITH NURSE.
--- NOTE | 2023-02-15 09:45 | NUR ---
POISON CONTROL UPDATE/[facility] POISON CONTROL CALLED FOR UPDATE ON PATIENT. RECOMMENDATIONS RECEIVED FOR REPEAT EKG, POTASSIUM REPLACEMENT, CALCIUM REPLACEMENT, AND INCREASED BENZODIAZEPINE ADMINISTRATION. CALL MADE TO DR. ACEVEDO WITH RECOMMENDATIONS. ORDERS RECEIVED FOR REPEAT EKG, 40MEQ KCL IV X 1, [facility] MONITORING AND MEDICATION ORDERS, AND IONIZED CALCIUM CHECK.
--- NOTE | 2023-02-15 11:15 | NUR ---
AGITATION ATTEMPTED EKG. PATIENT TOLERATED STYICKERS BEING PLACED THEN BECAME AGITATED YELLING AT STAFF TO GET "THIS SHIT" OFF OF HIM WHEN TALKING ABOUT HIS CARDIAC LEADS AND SPO2 MONITOR. EDUCATED PATIENT ON THE NECESITY OF THESE ITEMS. PATIENT BEGAN YELLING THAT HE HAD TO PEE. WHEN OFFERED THE URINAL HE REFUSED STATING "I'M GOING TO PISS ALL IN THIS BED". PATIENT WAS FINALLY AGREEABLE TO URINAL KILO VOIDED 100ML WITH ONE INCONTINENT VOID IN THE ATTENDS. CIWA 15 AT THIS TIME.
--- NOTE | 2023-02-15 14:12 | NUR ---
REFUSED LIBRIUM CIWA SCORE OF 17. MEDICATED WITH ATIVAN PER EMAR AND ATTEMPTED TO MEDICATE WITH LIBIRUM, BUT PATIENT REFUSED AND VOICED ANGER WITH THIS NURSE.
--- NOTE | 2023-02-15 19:28 | NUR ---
SHIFT SUMMARY PATIENT SLEPT OFF AND ON THROUGHOUT SHIFT. REFUSED SOME CARES AND MEDS-SEE PREVIOUS NOTES. PATIENT MEDICATED WITH ATIVAN PRN CIWAS. HIGHEST CIWA 17. AFEBRILE T/O SHIFT. PATIENT URINATED USING URINAL AND HAD MULTIPLE UNMEASURED VOIDS IN BREIF D/T REFUSING URINAL FOR TOO LONG. REMAINS TREMULOUS. POTASSIUM REPLACED WITH 40MEQ KCL IV X 1. NO OTHER CHANGES THIS SHIFT.
--- NOTE | 2023-02-15 23:35 | NUR ---
ASSUMED CARE ASSUMED CARE AT 1900. PT PLEASANT AT BEGINNING OF SHIFT. COOPERATIVE WITH ASSESSMENT, AND ANSWERING MOST QUESTIONS. STATES NAME, , AND THAT HES HERE IN THE HOSPITAL IN [place]. PT VERY TREMULOUS AND CIWA 12. TALKED TO PT REGARDING ETOH WITHDRAWL AND THE RISKS ASSOCIATED WITH IT. EDUCATED PT REGARDING LIBRIUM AND ASKED IF HE WOULD TAKE IT. PT REFUSED. PT TOLD THAT HE WOULD RECEIVE ATIVAN WELL. PT STATES "WHAT IF I DON'T CONSENT". EDUCATED PT ON HOLD STATUS, AND THE DUTY TO KEEP HIM SAFE IN THE HOSPITAL. PT CALM AND LET THIS RN MEDICATE HIM WITH ATIVAN. VOIDED IN URINAL WITH ASSISTANCE. VSS. PT IS IRRITABLE AND ANGRY AT TIMES, VOICES FRUSTRATION AT BEING IN HOSPITAL, AND STATES HIS " 14 DAYS, I DON'T WANT TO BE HERE ANYMORE". VSS. SR 60-80'S. BP STABLE. 1:1 SITTER AT BEDSIDE.
[2023-02-16] VITALS (8 sets, daily range): BP systolic 132–166; BP diastolic 79–111
[2023-02-16 03:42] LABS: BASOPHILS ABSOLUTE AUTO 0.03 K/mm3 (0.00-0.23); BASOPHILS PERCENT AUTO 1 % (0-2); EOSINOPHILS ABSOLUTE AUTO 0.44 K/mm3 (0.00-0.68); EOSINOPHILS PERCENT AUTO 9 % (0-6); Hematocrit 35.6 % (37.0-53.0); Hemoglobin 12.2 g/dL (13.5-17.5); IMMATURE GRAN ABSOLUTE AUTO 0.01 K/mm3 (0.00-0.10); IMMATURE GRAN PERCENT AUTO 0 % (0-1); LYMPHOCYTES ABSOLUTE AUTO 2.07 K/mm3 (0.84-5.20); LYMPHOCYTES PERCENT AUTO 43 % (21-46); MONOCYTES ABSOLUTE AUTO 0.48 K/mm3 (0.16-1.47); MONOCYTES PERCENT AUTO 10 % (4-13); Mean Corpuscular HGB 31.9 pg (26.0-34.0); Mean Corpuscular HGB Conc 34.3 g/dL (31.5-36.5); Mean Corpuscular Volume 93 fL (80-100); Mean Platelet Volume 10.7 fL (9.1-12.4); NEUTROPHILS ABSOLUTE AUTO 1.83 K/mm3 (1.96-9.15); NEUTROPHILS PERCENT AUTO 38 % (41-73); Platelet Count 266 K/mm3 (150-400); RDW Coefficient Variation 13.9 % (11.7-14.2); RDW Standard Deviation 47.4 fL (35.1-46.3); Red Blood Cell Count 3.82 M/mm3 (4.30-5.90); White Blood Cell Count 4.86 K/mm3 (4.00-11.30)
[2023-02-16 04:13] LABS: Albumin, Blood 2.6 g/dL (3.4-5.0); Bilirubin, Total 1.3 mg/dL (0.1-1.0); Bun/Creatinine Ratio 10.3 (12.0-20.0); Calcium, Blood 8.5 mg/dL (8.5-10.1); Creatinine, Blood 0.78 mg/dL (0.60-1.20); Globulin, Blood 2.7 g/dL (2.2-4.0); Magnesium, Blood 1.7 mg/dL (1.6-2.4); Potassium, Blood 3.3 mmol/L (3.5-5.5); Total Protein, Blood 5.3 g/dL (6.4-8.2)
--- NOTE | 2023-02-16 06:37 | NUR ---
SHIFT SUMMARY NO ACUTE EVENTS T/O NIGHT. PT MOSTLY COOPERATIVE T/O NIGHT. EASILY IRRITABLE BUT ABLE TO BE TALKED DOWN. ALLOWED IV PLACEMENTS AND LABS TO BE DRAWN. ATIVAN GIVEN EVERY 2-3 HOURS. PT USED URINAL T/O NIGHT. VSS. SR. ON RA. 1:1 SITTER AT BEDSIDE.
--- NOTE | 2023-02-16 07:58 | NUR ---
ASSUMED CARE I ASSUMED CARE OF THIS PATIENT AT 0715. BEDSIDE SHIFT REPORT COMPLETED WITH Kinza CARDONA RN. PATIENT IN LYING IN BED RESTING QUIETLY. D5 1/2 NS INF @ 100ML/HR TO R HAND PIV. R AC PIV SALINE LOCKED. SITTER PRESENT AT DOORWAY. NO FAMILY, VISITORS, OR BELONGINGS IN ROOM AT THIS TIME.
--- NOTE | 2023-02-16 11:04 | NUR ---
WHILE PATIENT WAS USING THE COMMODE AND THIS NURSE ASSISTED WITH PLACEMENT OF A NEW BRIEF AND PANTS, PATIENT STATED "YOU DON'T GET IT. THIS WILL BE MY THIRD ONE. MY THIRD ESCAPE. I'LL JUST KEEP ESCAPING." WHEN ASKED PATIENT WHAT HE MEANT BY THAT HE REFUSED TO SPEAK FURTHER.
--- NOTE | 2023-02-16 18:21 | NUR ---
PT TRANSFERRED TO [facility] APROX 1545 THIS AFTERNOON. THIS RN TO ASSUME CARE OF PT AT THAT TIME. PT IS ALERT, ORIENTATION IS DIFFICULT TO ASSESS PT DOES NOT ANSWER ALL QUESTIONS. 1:1 SITTER AT BEDSIDE FOR SAFETY. PT'S AFFECT IS WITHDRAWN, AGGITATED AT TIMES. PT IS REFUSING LIBRIUM AND ATIVAN THIS EVENING. PT IS TEARFUL, STATES "I JUST WANT TO GO HOME. MY POOR GOATS HAVE BEEN ALONE FOR 4 DAYS." THIS RN OFFERED TO CALL PTs FRIEND OR FAMILY MEMBER TO HELP THE GOATS, BUT PT DECLINED. PT STATES HE IS FRUSTRATED THAT THE PSYCHOLOGIST HAS NOT BEEN IN TO SEE HIM TODAY, HE WISHES TO BE EVALUATED AND BE ABLE TO GO HOME. PT'S DTR BRUNO UPDATED ON PT'S CONDITION. NO ACUTE EVENTS SINCE ARRIVAL TO [facility]. 1:[address], BED IN LOWEST POSITION, CALL LIGHT IN REACH. WILL CONTINUE TO MONITOR AND GIVE REPORT TO NOC SHIFT RN.
--- NOTE | 2023-02-16 22:26 | NUR ---
ASSUMPTION OF CARE: THIS RN ASSUMED CARE OF PT AT APPROX 1915. PT IS ALERT, SLIGHTLY AGITATED ON INITIAL ENCOUNTER. INITIAL CIWA 7. SUICIDE REASSESSMENT COMPLETED; PT DENIES ALL SUICIDAL IDEATION, HOWEVER, PT CONTINUES TO BECOME TEARFUL WHEN DISCUSSING CURRENT SITUATION AND VOICES LACK OF MOTIVATION FOR IMPROVEMENT TO THIS RN. PT'S DAUGHTER, JONATHAN, CALLED FOR UPDATE THIS PM. JONATHAN STATED THAT THE PT IS "VERY SMART & WILL JUST TELL YOU WHAT HE THINKS YOU WANT TO HEAR TO GET WHAT HE WANTS." DISCUSSED PO LIBRIUM NEEDED T/O NOC W/ PT, PT VERBALLY REFUSED TO TAKE ANY/ALL PO MEDICATIONS. VSS AT THIS TIME. ROOM WAS MITIGATED OF PT SAFETY HAZARDS AT 1999 & 1:1 SITTER REMAINS PRESENT. PT RESTING IN BED AT THIS TIME.
--- NOTE | 2023-02-17 00:06 | NUR ---
UPDATE: THIS RN CALLED TO PT'S ROOM BY STAFF STATING THAT THE PT IS ADAMENT ABOUT GETTING UP TO GO FOR A WALK. PT EDUCATED BY THIS RN ON ACTIVITY, SAFETY & FALL PREVENTION. PT STATES "I GUESS I WILL JUST PLOT MY ESCAPE, I HAVE DONE IT BEFORE." ATTEMPTED TO INQUIRE FURTHER, PT REFUSED TO ELABORATE. THIS RN REEDUCATED PT, PT STATES "THAT'S CALLED PASSIVE AGGRESSIVE, GOODBYE." 1:1 SITTER REMAINS AT BEDSIDE FOR PT SAFETY.
[2023-02-17 03:13] VITALS: BP 163/97
[2023-02-17 04:35] LABS: Bun/Creatinine Ratio 8.8 (12.0-20.0); Calcium, Blood 9.5 mg/dL (8.5-10.1); Creatinine, Blood 0.69 mg/dL (0.60-1.20); Potassium, Blood 3.5 mmol/L (3.5-5.5)
--- NOTE | 2023-02-17 04:42 | NUR ---
END OF SHIFT NOTE: PT REMAINS ALERT, ORIENTED X3-4 WHEN COOPERATIVE W/ ANSWERING QUESTIONS. AGITATED AT TIMES, WITHDRAWN AFFECT. CIWA'S 5-13, MEDICATED W/ IV ATIVAN 1X; PT REFUSING PO LIBRIUM. REPEATEDLY ASKING THIS RN WHEN HE WILL BE ABLE TO GO HOME. PT MAKING STATEMENTS SUCH "I JUST HAD AN EPIPHANY - NEXT TIME I THINK ABOUT SUICIDE, I WILL REMEMBER IT'S A BAD IDEA" BUT THEN STATES "I JUST WISH I HAD ENOUGH PILLS TO GET THE JOB DONE" WHEN REFERRING TO PREVIOUS SUICIDE ATTEMPT. PT REMAINS TEARFUL & FRUSTRATED WHEN DISCUSSING HIS CURRENT SITUATION. 1:1 SITTER REMAINS PRESENT IN ROOM FOR PT SAFETY. HR 60'S, SINUS ON TELE. SBP 140-150'S, DENIES CHEST PAIN/PRESSURE. SPO2 >92% ON RA, DENIES SOB. AFEBRILE. PT ABLE TO SIT UP & REPOSITION SELF INDEPENDENTLY IN BED. ASSISTANCE NECESSARY WHEN USING URINAL PT IS TREMULOUS & UNSTEADY. TOLERATING PO FLUID INTAKE WELL. NO OTHER NEEDS AT THIS TIME. PT IS RESTING IN BED W/ BED IN LOWEST POSITION. WILL REPORT TO ONCOMING RN.
--- NOTE | 2023-02-17 05:50 | NUR ---
SI UPDATE: THIS RN IN PT'S ROOM THIS AM. PT BECAME TEARFUL, HOLDING THIS RN'S HANDS AND STATING "I JUST WANT MY BACK. MY KIDS DON'T LOVE ME, ALCOHOL BROKE US ALL APART, I HAVE NO ONE." THIS RN PROVIDED EXTENSIVE THERAPEUTIC COMMUNICATION, PT CONTINUES TO BE TEARFUL. PT THEN VOICES FRUSTRATION IN WANTING TO LEAVE THE HOSPITAL & NOT SEEING THE PHYCHIATRIST YESTERDAY. PT STATES "THE LONGER I'M HERE, THE MORE ANGRY I'M BECOMING. THERE'S SO MANY WAYS I COULD KILL MYSELF IN THIS ROOM THAT NO ONE COULD STOP ME." ADDITIONAL THERAPEUTIC COMMUNICATION PROVIDED, 1:1 SITTER REMAINS PRESENT IN ROOM & POTENTIAL DANGEROUS ITEMS HAVE BEEN MITIGATED FROM THE ROOM WHERE POSSIBLE. MARIONWA REASSESSED, MEDICATED PT W/ IV ATIVAN PER ORDERS.
[2023-02-17 08:00] VITALS: BP 157/88
--- NOTE | 2023-02-17 09:00 | NUR ---
NURSING PCU DAYSHIFT: Assumed care of pt at approx 0700. Pt appears to have rested comfortably t/o the a.m. Pt is withdrawn, answers most questions though at times does not want to discuss symptoms or current medical status. Continues to express SI, frustration w/not having freedom to end his life. Intermittent agitation though is minimal and easily redirected, at times jokes and smiles while interacting w/staff. Tele in place, NSR, HTN this a.m., no c/o CP/pressure. L/S cta t/o O2 sat mid to upper 90's, denies dyspnea, no noted cough. Abd SNT, BT+, voiding w/o difficulty per report. PIV x1, s/l. 1:1 sitter remains at bedside for high risk SI. Seen by PMD and psych this a.m., plan for discharge to inpatient psych facility when medically stable. Pt denies any current questions, refused breakfast this a.m., bedbath completed, paper scrubs provided per request, continues to rest in bed with lights low at this time.
[2023-02-17 15:15] VITALS: BP 159/92
--- NOTE | 2023-02-17 16:20 | NUR ---
NURSING PCU/TRANSFER OF CARE SUMMARY: No significant changes noted t/o shift. Pt remains hypertensive, respiratory status unchanged. Seen by PMD/psych, new d/o received. Pt continues to verbalize suicidal ideation and is not agreeable to inpatient plan of care. Continued CIWA assessments, 7-9, tremulous though able to ambulate, "foggy" though mostly cooperative w/care, tx w/ativan as ordered, refuses librium. Pt continues to remain on "hunger strike" though is independently drinking water. Bedside shift report provided to peer RN to assume care. 1:1 sitter remains in room, no signs of distress at time of transfer of care.
--- NOTE | 2023-02-17 18:13 | NUR ---
THIS RN ASSUMED CARE AT 1600. NO CHANGES, SEE PRIOR NOTES. PATIENT ATE A FEW BITES OF DINNER. CALM AND COOPERATIVE WITH CARES. SITTER REMAINS AT BEDSIDE. PATIENT TALKED TO DAUGHTER ON PHONE. IV FOLIC ACID AND THIAMINE INFUSED PER EMAR. DENIES NEEDS AT THIS TIME.
[2023-02-17 19:38] VITALS: BP 155/96
--- NOTE | 2023-02-17 19:58 | NUR ---
ASSUMPTION OF CARE: THIS RN ASSUMED CARE OF PT AT [facility] 191. PT ALERT, TEARFUL ON INITIAL INTERACTION. PT REQUESTING TO SPEAK TO , WHO RECENTLY; THERAPEUTIC COMMUNICATION PROVIDED, PT ASSISTED W/ PLACING PHONE CALL TO DAUGHTER JONATHAN. FOLLOWING CONVERSATION, PT APPEARS TO BE MORE CALM, SMILING W/ STAFF. REQUESTING TO GO FOR WALK, PT ASSISTED TO WALK AROUND UNIT W/ 2P SBA ASSIST & GAIT BELT; TOLERATED VERY WELL. CIWA 6 AT THIS TIME. VSS. 1:1 SITTER REMAINS PRESENT FOR PT SAFETY.
--- NOTE | 2023-02-17 23:41 | NUR ---
UPDATE: THIS RN CALLED TO PT'S ROOM FOR INCREASED AGITATION & PT THREATENING TO ATTEMPT TO LEAVE. PT SITTING UP ON EDGE OF THE BED ON THE PHONE W/ DAUGHTER, JONATHAN. PT IS VISIBLY UPSET DURING PHONE CALL. AT THE CONCLUSION OF THE CALL, PT STATES THAT HE IS "DONE WITH JONATHAN" AND THAT HE IS ANGRY SHE HAS NOT VISITED HIM. PT BELIEVES HE IS AT HIS HOUSE & WANTS TO "JUMP IN THE CAR TO DRIVE TO [place] TO JONATHAN'S HOUSE." CIWA REASSESSED, SCORE 11. MEDICATED W/ IV ATIVAN PER EMAR. THIS RN PROVIDED THERAPEUTIC COMMUNICATION, PT CONTINUES TO DISPLAY AGITATION; PT STATES "I'M GOING TO JUMP OUT THIS WINDOW IF I HAVE TO" & "I'LL JUST CALL MY PROMOTION WRITER TO TAKE CARE OF THIS." PT READVISED THAT HE IS NOT FREE TO LEAVE AT THIS TIME PER 2MD HOLD IN PLACE. PT LAYS ON BED W/ ALL EXTREMITIES EXTENDED & STATES "WELL THEN YOU BETTER JUST RESTRAIN ME." TOW MOTOR DRIVER TO BEDSIDE. ADDITIONAL THERAPEUTIC COMMUNICATION PROVIDED, PLAN FOR INPATIENT PSYCH FACILITY DISCUSSED W/ MD KAREY HOLD PAPERWORK SHOWN TO & EXPLAINED TO PT. PT CONTINUES TO SIT UP IN BED, EXPLAINING CONCERNS AND FRUSTRATIONS TO TOW MOTOR DRIVER AT THIS TIME.
--- NOTE | 2023-02-18 00:49 | NUR ---
UPDATE: PT CONTINUES TO DISPLAY SIGNIFICANT AGITATION THIS AM. DISORIENTED, PT BELIEVES HE IS AT HOME & HAS BEGUN THREATENING STAFF. PT STATES THAT HE IS GOING TO "ASSAULT" STAFF AND COMMIT "FELONIES" WHILE HERE. NOT REDIRECTABLE. REMAINS MODERATELY TREMULOUS. TIKA REASSESSED, 21 THIS AM. THERAPIST PHYSICAL NOTIFIED PHYSICIAN OF BEHAVIOR. 4MG IV ATIVAN ADMINISTERED PER ORDERS. 1:[address] FOR PT'S SAFETY.
--- NOTE | 2023-02-18 03:14 | NUR ---
ARRIVAL TO PCU: PT ARRIVED TO PCU02 AT APPROX 0245. PT ALERT, ORIENTED X4. COMMUNICATING WITH STAFF, ABLE TO MAKE NEEDS KNOWN. PT ABLE TO STAND & TRANSFER TO BED W/ LINE ASSISTANCE. HR 70'S, SINUS ON TELE. SBP 149. PT DENIES CHEST PAIN/PRESSURE SINCE ARRIVING TO ED. SPO2 >95% ON RA, DENIES SOB. AFEBRILE. HEPARIN GTT INFUSING AT 15 U/KG/HR PER PHARMACY ORDERS, VERIFIED W/ HARRIET RN. ORIENTED PT TO ROOM/UNIT/CALL LIGHT, FALL PREVENTION EDUCATION PROVIDED & PT ABLE TO VOICE UNDERSTANDING. FIRE IGNITION RISK ASSESSED; PT IS NOT A CURRENT SMOKER, DENIES HAVING ANY LIGHTERS/IGNITION SOURCES PRESENT AT TIME OF ADMISSION. CALL LIGHT WITHIN REACH, BED IN LOWEST POSITION.
[2023-02-18 03:30] VITALS: BP 148/90
--- NOTE | 2023-02-18 05:12 | NUR ---
END OF SHIFT NOTE: SEE PREVIOUS NOTES FOR UPDATES T/O SHIFT. PT REMAINS CONFUSED & DISORIENTED, BELIEVES HE IS AT HOME. MAKES STATEMENTS LIKE: "OPEN THE FRONT DOOR UP, I'M WORRIES ABOUT MY KITTIES." CIWA'S 6-21; MEDICATED PER ORDERS. PT LAYING IN BED AT THIS TIME, REMAINS RESTLESS/ANXIOUS/TREMULOUS. CONTINUALLY DISORIENTED TO PLACE & HAS REQUESTED TO TALK ON THE PHONE TO HIS MULTIPLE TIMES THIS SHIFT. 1:1 SITTER REMAINS PRESENT FOR PT SAFETY, SI SCREENING UP TO DATE. PT ABLE TO REPOSITION SELF IN BED, DECLINES ASSISTANCE FROM STAFF FREQUENTLY. NO OTHER NEEDS AT THIS TIME. WILL REPORT TO ONCOMING RN.
[2023-02-18 07:47] VITALS: BP 143/94
--- NOTE | 2023-02-18 08:00 | NUR ---
AM assessment: Pt sitting at edge of bed with 1:1 sitter in chair a few feet away. Pt irritable, states he can't sleep. Pt is oriented to place, situation, self, year, unsure of exact date. When asked about why he is here patient states, "I guess you want me to tell you I tried to kill myself". Asked patient how much he drinks he responded with, "As much as I can, and I smoke as much good pot as I can get". When asked why he responded, "My in November". When asked if this is how he is coping he responded with "Yes". This RN attempted to do some theraputic conversation but Pt states, "we're not talking about this". Pt LS clear, BT positive, Pulses palp, HR reg. VSS. Will continue to monitor.
--- NOTE | 2023-02-18 10:00 | NUR ---
UPDATE: Pt very agitated. CIWA 12. Asked Pt if he would be willing to take some Librium. Pt refused. Pt educated on withdrawl process, and the need for assistance with medication. Pt states "I've been here for 11 days, I'm done withdrawing." Asked patient if he knew where he was, and he knew he is at [facility]. Pt asking for his belongings and pants. Reminded patient that he came into the hospital without any belongings, including clothes, 3 days ago. Pt trying to ask Sarina to call a number. Reminded patient that his phone is not in room and that he can not make a phone call at this time. Pt very irritated. States, "I'm not going to eat today, that is the only way you will listen to me". Told patient I was listening. Told patient he was actively withdrawing from ETOH and that he needed treatment, again refused librium so treated with IV ativan. Pt now dozing in bed with sitter at bedside. Will continue to monitor and treat.
--- NOTE | 2023-02-18 12:19 | NUR ---
UPDATE: When this RN came to take vital signs and patient states "absolutly not". Pt CIWA 12. Continuing to refuse all oral medications. Informed patient that he needed either ativan or librium, encouraged PO medications so that he would be able to discharge to psych facility. Pt seems to understand but continues to refuse oral medications. Medicated with Ativan IV. Will coninue to monitor.
[2023-02-18 14:50] VITALS: BP 175/86
--- NOTE | 2023-02-18 16:58 | NUR ---
UPdate: Pt laying in bed. Tearful. This RN was able to talk to patient about what he needs to do in order to go to inpatient rehab and then home. Informed him he needs to be able to take the withdrawl pills (librium) so that we can get him off of IV ativan. Pt voiced that he doesn't want to kill himself, he just doesn't want to live. Talked to patient about depression after his wifes . Talked about what he has to live for including; good memories, his daughters, fishing ect. Pt very tearful. Allowed patient to talk on the phone with his daughter Corrie, conversation went well and patient seemed hopefull and talked about taking trips with her in the future. Pt agreed to take one oral librium tablet. Pt CIWA was 12 and was medicated per orders. Will continue to monitor.
--- NOTE | 2023-02-18 18:33 | NUR ---
Shift Summary: Pt resting in room with sitter at bedside. Pt seemed to become more receptive of theraputic communication later on in the shift and was more willing to recieve care, including oral medications. Pt also started to drink coffee and agreed to try dinner this evening (ate 65%) after refusing breakfast and lunch. CIWA range from 6-12, was medicated per orders. Pt tearful on and off this shift when thinking about his . Pt still displays signs of SI and depression. 1:1 sitter to remain at bedside. Will monitor and report to night RN.
--- NOTE | 2023-02-18 22:12 | NUR ---
ASSUMPTION OF CARE THIS RN ASSUMED CARE OF PATIENT AT 1900. PT WAS AGGITATED AND REFUSING ALL MEDICATIONS AND CARE AT BEGINNING OF SHIFT BUT CONTINUED TO STAY IN BED AND ASKED TO BE LEFT ALONE SO HE COULD SLEEP. THIS RN ATTEMPTED TO EDUCATE PT AT BEGINNING OF SHIFT BUT PT WAS ASKING TO BE LEFT ALONE. AT APPROXIMATELY 0 THIS RN WAS NOTIFIED THAT SECURITY WAS IN THE ROOM D/T PT GRABBING SITTERS HAND AND PULLING BACK ON HER WRIST IN AN AGRESSIVE WAY. THIS CIWA SCORED IN MID 20'S. PT APPEARS TO BE HALLUCINATING TALKING ABOUT NEEDING TO SHOOT CATS IN ROOM, TREMULOUS AND AGGITATED. MEDICATED PER EMAR WITH IV ATIVAN AND IM HALDOL. PT CALM DURING MEDICATION DELIVERY; SECURITY REMAINED AT BEDSIDE WITH THIS RN. PT ASSISTED WITH URINAL SHORTLY AFTER. PT NOW APPEARS TO BE RESTING ON SIDE. SITTER REMAINS AT BEDSIDE. THIS RN COMPLETED ASSESSMENT AND VITALS WHILE SECURITY WAS IN ROOM D/T PT REFUSING INTERVENTIONS PREVIOUSLY. LIGHTS TURNED OFF. STIMULUS REDUCED. BED IN LOWEST POSITION.
[2023-02-18 22:22] VITALS: BP 165/94
[2023-02-19 03:18] VITALS: BP 156/91
--- NOTE | 2023-02-19 04:59 | NUR ---
SHIFT SUMMARY SEE PREVIOUS NOTE. PT CONTINUED TO BE HIGHLY AGGITATED THROUGHOUT THIS SHIFT. IV ATIVAN GIVEN PER EMAR. CIWA 4-6 WHEN PT CALM AFTER MEDICATION. OTHERWISE CIWA'S 15-16. PT NOTED TO HAVE HALLUCINATIONS. YELLING/CURSING AT STAFF. SITTER REMAINS AT BEDSIDE. VITALS STABLE. WHEN PT CALM, PT IS A&O X3. PT USING URINAL FREQUENTLY, WHICH SEEMS TO CAUSE INCREASED AGGITATION. ALLOWED THIS RN TO GIVE PO LIBRIUM ONCE THIS SHIFT. OTHERWISE PT REFUSED ALL PO MEDS. PT CONTINUES TO HAVE TREMORS AND IS VERY WEAK WITH AMBULATION. BED IN LOWEST POSITION. THIS RN WILL REPORT TO ONCOMING DAYSRIFT RN.
[2023-02-19 07:52] VITALS: BP 125/63
[2023-02-19 16:09] VITALS: BP 161/73
--- NOTE | 2023-02-19 17:02 | NUR ---
SHIFT SUMMARY: PT APPEARED TO SLEEP MOST OF THE MORNING, OOB A COUPLE TIMES FOR URINAL/RESTROOM. PT CONTINUES WITHDRAWN, SELECTIVE ABOUT WHEN HE ANSWERS QUESTIONS RE: SI AND CURRENT STATUS. PT BEEN COOPERATIVE W/STAFF TODAY, NO AGITATION HAS BEEN WITNESSED TOWARDS STAFF. PT MEDICATED x1 FOR CIWA, PT HAS BEEN TREMULOUS AND C/O HALLWAY NOISES BEING TO LOUD. O2 SATS >93% ON RA, RESPIRATIONS EVEN AND UNLABORED, VS STABLE (PT INITIALLY REFUSED HTN MEDICATION THEN AGREED TO TAKE IN THE AFTERNOON), BT PRESENT TO AUSCULATION, VOIDING W/OUT DIFFICULTY. PT DECLINING FOOD, WILL OCCASIONALLY DRINK FLUIDS. 1:[address] FOR SAFETY. PT's DAUGHTER, BRUNO, UPDATED VIA TELEPHONE. WILL CONTINUE TO MONITOR AND TREAT ACCORDINGLY UNTIL CHANGE OF SHIFT.
--- NOTE | 2023-02-19 18:35 | NUR ---
SHIFT SUMMARY PT TRANSFERRED FROM ICU AT APPROX 1815. PT ALERT AND ANSWERS QUESTIONS APPROPRIATELY. PT OBEYS COMMANDS. PT IS HARD OF HEARING AND SPEECH IS MUMBLED. PT DENIES CHEST PAIN/ PRESSURE. SPO2>92% ON 3L O2 NC. PT POSITIONED IN BED WITH PILLOWS UNDER PPER EXTREMETIES FOR COMFORT. NO ACUTE CHANGES.
--- NOTE | 2023-02-19 18:47 | NUR ---
ASSUMPTIOM OF CARE: PATIENT ARRIVES TO ROOM AT 1837 FROM PCU. ASSUMED CARE OF PATIENT. PATIENT HAS 1:1 SITTER IN ROOM. PIV TO RAC SALINE LOCKED. CALL LIGHT IN REACH
[2023-02-19 20:04] VITALS: BP 166/96
[2023-02-19] MEDS ORDERED: CHLO25 PO (20:54)
--- NOTE | 2023-02-19 20:54 | NUR ---
ETOH W/D PT TRANSFERED HERE FROM PCU. PT CONFUSED. SEEING THINGS ON THE FLOOR. A P MECHANIC AT BEDSIDE. PT AGGRESSIVE VERBALLY AND PHYSICALLY. MEDICATED WITH ATIVAN 2MG X1. NO EFFECT. PT ATTEMPTED TO BITE HIS FINGER OFF BECAUSE IT HURT HIM. MEDCIATED WITH ATIVAN 2MG IV. NO EFFECT. PT CONTINUES TO BE AGGITATED AND ANGRY. MEDICATE WITH ATIVAN 2MG X1( THIRD DOSE.) PT CONTINUES TO CLIMB OOB. CHARGE NURSE NOTIFIED OF ATIVAN USE. NURSING CHEMICAL LABORATORY CHIEF NOTIFED. CARE ONGOING.
[2023-02-19] MEDS ORDERED: OMEP20ER PO (20:55)
[2023-02-19 21:45] VITALS: BP 158/107
[2023-02-20] VITALS (9 sets, daily range): BP systolic 97–151; BP diastolic 62–96
--- NOTE | 2023-02-20 01:15 | NUR ---
PT AGITATION: PT CONTINUES TO BE INTERMITTENTLY AGITATED. HE REFUSES TO KEEP TELEMETRY LEADS AND BLOOD PRESSURE CUFF ON. HE HAS SPO2 PROBE ON HIS FOOT THAT HE IS TOLORATING. MONITORING PULSE AND O2 SATURATION. CHARGE NURSE AWARE.
--- NOTE | 2023-02-20 05:19 | NUR ---
SHIFT SUMMARY: PT WAS TRANSFERRED TO THE ICU AT 2135 BECAUSE OF INCREASING AGITATION AND CONFUSION. UPON ARRIVAL PT WAS AGITATED, BUT REDIRECTABLE. HIS WORDS WERE MUMBLED AND DIFFICULT TO UNDERSTAND, BUT RESPONDED TO YES AND NO QUESTIONS. HE WAS UNABLE TO TELL ME WHERE HE WAS AT OR WHAT THE DATE WAS. HE HAD OCCASIONAL OUT OF CONTEXT REMARKS SUCH COMPLAINING THAT THERE WAS NO TOILET PAPER IN THE BATHROOM. HE BECAME INCREASING AGITATED WHEN ATTEMPTING TO PLACE TELEMETRY LEADS OR A BLOOD PRESSURE CUFF. HE DID NOT RESPOND TO ANY REDIRECTION BUT CONTINUED TO ATTEMPT TO PULL AND BITE TELEMETRY LEADS. PRECEDEX GTT WAS ORDERED AND STARTED. PT RESPONDED WELL TO PRECEDEX. A RASS OF -1 WAS QUICKLY ACHIEVED AND PT WAS ABLE TO REST. HE WAS EASILY AROUSED AND CONTINUED TO REMOVE LEADS. HE TOLORATED A SPO2 PROPB ON HIS TOE WHICH ALLOWED FOR OXYGEN AND HEART RATE MONITORING. PT BECAME BRADYCARDIC WITH HIS HR IN THE LOW TO MID 50'S AT 0400 AND PRECEDEX WAS TURNED OFF. PT RESPONDED WELL TO STIMULATION AND WAS ABLE TO RESUME SLEEPING. PT 1:1 SITTER REMAINED AT BEDSIDE THROUGH THE NIGHT AND PT SAFETY WAS MAINTAINED.
--- NOTE | 2023-02-20 09:57 | NUR ---
PT RESTLESS IN BED BUT WILL REDIRECT. ANSWERS MINIMAL QUESTIONS. DECLINES MEDS, WILL NOT KEEP TELE OR SPO2 PROBE ON, DR. ACEVEDO AWARE. 1:1 SITTER FOR SAFETY PT STILL REPORTS SI. PRECEDEX HAS BEEN OFF SINCE 399.
--- NOTE | 2023-02-20 18:01 | NUR ---
SUMMARY PT CONTINUES TO BE RESTLESS BUT IS REDIRECTABLE AND STARTING TO CONVERSE WITH STAFF MORE. NO SEDATIVES GIVEN TODAY. REDIRECTABLE. OOB TO BSC A FEW TIMES TODAY. LEGS ARE WEAK BUT GETTING STRONGER EACH TIME HE GETS OOB. 2 PERSON ASSIST WITH GAITBELT. NOT MUCH OF AN APPETITE BUT IS DRINKING WATER. STILL HAS 1:1 SITTER FOR SAFETY R/T SI. OF CONTINUOUS MONITOR D/T PT CONSTANTLY REPOSITIONING IN BED AND GETTING TANGLED. MD AWARE. NO SIGN OF DISTRESS.
--- NOTE | 2023-02-20 22:05 | NUR ---
PT ARRIVED ON UNIT AT ~2150. REPORT RECIEVED FROM ICU NURSE PRIOR TO TRANSFER. PT ASSISTED INTO NEW BED VIA SLIDE TRANSFER. REFUSES VITALS, 2100 MEDICATION. APPEARS VERY CONFUSED, REPEATED "WELCOME TO [place]" SEVERAL TIMES AND APPEARED TO THINK HE WAS IN [place]. SUICIDE PRECAUTIONS IN PLACE WITHIN ROOM ALL BAGS, LONG CORDS, ETC REMOVED FROM ROOM TO PROMOTE SAFETY. 1:[address] FOR SAFETY[address] BED LOCKED IN LOWEST POSITION AT THIS TIME. SITTER REMAINS IN PLACE. CONTINUING TO MONITOR.
--- NOTE | 2023-02-20 22:33 | NUR ---
SHIFT SUMMARY/PT TRANSFER: PT CONTINUED TO BE CONFUSED. HE HAS BEEN MILDLY AGITATED, BUT EASILY REDIRECTABLE. HE HAS CONTINUED TO REFUSE TELEMETRY, BUT HE WAS WILLING TO HAVE INTERMITTENT BLOOD PRESSURE AND PULSE OXIMETER CHECKS. PT'S VSS. 1:1 SITTER AT BEDSIDE. PT SAFETY MAINTAINED. PT TRANSFERED TO PCU BED 209. REPORT GIVEN TO RN. PT TRANSFERED WITH DENTURES. NO OTHER BELONGINGS PRESENT.
[2023-02-21] VITALS (8 sets, daily range): BP systolic 145–190; BP diastolic 90–131
--- NOTE | 2023-02-21 01:59 | NUR ---
PT HAS BEEN REQUESTING TO SPEAK WITH HIS DAUGHTER BRUNO FOR SOME TIME NOW. WAS ABLE TO FIND BRUNO'S NUMBER IN PHYSICAL CHART AND ALLOWED PT TO CALL HER TO CHAT. UPON FINISHING CALL, PT WAS ADAMANT ABOUT LEAVING TO "GO TO [facility]" AND DID WANT HIS DAUGHTER TO PICK HIM UP. INFORMED PT THAT I WOULD CALL AND SPEAK WITH BRUNO TO SEE IF SHE CAN PICK HIM UP IN THE MORNING. PT WAS CONTENT WITH THIS IDEA AND RELAXED IN BED. SPOKE WITH DAUGHTER BRUNO. INFORMED ABOUT CURRENT SITUATION. BRUNO WAS AWARE THAT THE HOLD IS UP, ALTHOUGH NOTED THAT SHE DOES NOT THINK THAT PT KNOWS THIS, AND IS AWARE THAT THEY ARE ATTEMPTING TO GET HIM INPATIENT PSYCH PLACEMENT. BRUNO THOUGHT THIS WAS FOR THE BEST AND DOES NOT THINK IT WOULD BE A GREAT IDEA FOR HIM TO GO LIVE WITH HER HE CAN BE AGGRESSIVE, MANIPULATIVE, AND LABILE IN HIS MOOD. BRUNO ALSO NOTED THAT SHE GOT THE IMPRESSION BASED ON HER CONVERSATION WITH PT THAT HE WAS VERY CONFUSED, WITH WHICH THIS RN AGREED. INFORMED THAT I WILL ATTEMPT TO HAVE MORE INFORMATION ABOUT PLACEMENT ACQUIRED ON DAY SHIFT AND WILL ENCOURAGE DAY SHIFT RN TO GIVE HER A CALL WITH AN UPDATE WHEN AVAILABLE. BRUNO WAS APPRECIATIVE. PT MORE REDIRECTABLE AND COMFORTABLE AFTER CONVERSATION WITH BRUNO. CONTINUING TO MONITOR.
--- NOTE | 2023-02-21 04:25 | NUR ---
SHIFT SUMMARY. THERE HAVE BEEN NO ACUTE CHANGES THIS SHIFT. PT REMAINS CONFUSED, MOSTLY DIFFICULT TO REDIRECT, EASILY AGITATED, AND LABILE. REFUSING GRAND MAJORITY OF CARE. LYING IN BED BUT FREQUENTLY ATTEMPTING OOB AND BECOMES AGITATED WITH STAFF ATTEMPTING TO REDIRECT HIM. 1:[address] SAFETY AND RISK MITIGATION PROCESS INTERVENTION COMPLETED Q4 PER ORDERS. PT HAS NOT PULLED IV BUT DOES REFUSE TO HAVE TELE MONITOR PUT IN PLACE, REFUSES VITALS, REFUSES ALL PO MEDICATIONS. DESPITE THIS, HAS NOT BECOME COMBATIVE WITH STAFF AND HAS NOT THREATENED PHYSICAL VIOLENCE AT ANY POINT. BED LOCKED IN LOWEST POSITION. 1:[address] TO ENSURE SAFETY. CONTINUING TO MONITOR.
--- NOTE | 2023-02-21 16:59 | NUR ---
SHIFT SUMMARY; ASSUMED CARE AT 0700. ALERT TO SELF. SITS AT BEDSIDE MULTIPLE TIMES IN AM STATING HAS TO URINATE. ASSISTED WITH URNIAL SEVERAL TIMES. 1:1 SITTER AT BEDSIDE. DOES NOT FOLLOW DIRECTIONS OR ANSWER QUESTIONS. MAKES EYE CONTACT AT TIMES. ANSWERS EVERY QUESTION WITH "JOSSIE". YELLS DAUGHTERS NAME OUTLOUD. INCREASINGLY MORE AGITATED IN AFTERNOON DESPITE MEDS, KICKING AND YELLING AT STAFF, PULLS IV OUT. CLIMBS OUT OF BED AND WILL NOT REDIRECT. SPOKE WITH DR. SPENCER, ORDER GIVEN FOR NAVNEET. PULLING AGAINST NAVNEET, CONTINUES TO YELL AND KICK. ATTEMPTED TO PLACE ON DIRECTOR OF AUTOMATION FOR CARDIAC MEDS, PULLS LINES OFF. SPOKE WITH DR. SPENCER AGAIN. CONTINUING CIWA'S. ORDER GIVEN FOR ICU. TRANSFER PLACED. WILL GIVE REPORT TO EXPERIENCE DESIGNER.
[2023-02-22] VITALS (37 sets, daily range): BP systolic 124–182; BP diastolic 81–155
--- NOTE | 2023-02-22 02:36 | NUR ---
2227 - THIS RN CALLED TO ROOM BY NON-CLINICAL SITTER BECAUSE PT WAS "SHAKING". WHEN THIS RN ARRIVED, PT HAD NECK FLEXED, LEFT GAZE DEVIATION, AND APPEARED TO BE HAVING A GRAND MAL. RHYTHMIC MOVEMENT OF UPPER AND LOWER BODY, NON RESPONSIVE TO VOICE, PAIN OR TOUCH. CALLED PRIMARY RN UNA Marie AND DR. DE OLIVEIRA WHO WAS ON THE UNIT AT THE TIME OF THE EVENT. ALSO CALLED [employer] SYSTEM MAINTAINER GABRIELLE Carr TO BEDSIDE FOR ASSISTANCE. PT'S VSS, PLACED ON OXYGEN BRIFLY DURING EVENT. ORDER FOR 2 MG IV ATIVAN X2 RECEIVED. PT SLOWLY STARTED COMING OUT OF THE SEIZURE AROUND 2244 WITH SLOWING OF MOVEMENTS BUT REMAINS NONVERBAL WITH L GAZE DEVIATION AND L FACIAL DROOP. STAT HEAD CT ORDERED.
--- NOTE | 2023-02-22 02:45 | NUR ---
1924 - SPOKE WITH DR. VILLEGAS REGARDING PT ICU TRANSFER ORDERS. PT RESTING COMFORTABLY AT THIS TIME IN [place] VEST, COOPERATIVE WITH CARE AND DENIES NEEDS. ORAL CARE COMPLETED. PLAN TO D/C ICU TRANSFER AND PRECEDEX ORDERS PER MD DUE TO CURRENT CONDITION AND MONITOR CLOSELY OVERNIGHT.
--- NOTE | 2023-02-22 06:35 | NUR ---
SHIFT SUMMARY AT APPROXIMATELY 2226 THIS RN WAS NOTIFIED THAT PT WAS HAVING A SEIZURE. IT ENDED AT APPROXIMATELY 2244. PT WAS GIVEN A TOTAL OF 4MG ATIVAN AND KEPPRA PER EMAR. DR. VILLEGAS AND ALVINO BOTH AT BEDSIDE. NON REBREATHER DURING SEIZURE ACTIVITY AND 1L NC SINCE & MAINTAINING 02 SATURATION ABOVE 92%. PT HAS BEEN NONVERBAL SINCE SEIZURE WITH BILATERAL LEFT DEVIATION GAZE, MD AWARE. CATHERINE. STAT HEAD CT WAS ORDERED AND PERFORMED, SEE REPORT. MRI ORDERED. PT CONTINUES TO HAVE 1:1 SITTER. PT CONTINUES TO MOVE AROUND IN BED AND PULL AT LINES AND CORDS, BILATERAL MITTENS IN PLACE PER ORDERS. PT IS INCONTINENT OF BLADDER AND BOWELS, BRIEF IN PLACE AND CHANGED PRN. ALL SI PRECAUTIONS TAKEN DURING ENTIRE SHIFT. PT CURRENTLY MOVING AROUND IN BED WITH SITTER IN PLACE.
[2023-02-22 08:16] LABS: BASOPHILS ABSOLUTE AUTO 0.05 K/mm3 (0.00-0.23); BASOPHILS PERCENT AUTO 1 % (0-2); EOSINOPHILS ABSOLUTE AUTO 0.33 K/mm3 (0.00-0.68); EOSINOPHILS PERCENT AUTO 4 % (0-6); Hematocrit 39.5 % (37.0-53.0); Hemoglobin 13.5 g/dL (13.5-17.5); IMMATURE GRAN ABSOLUTE AUTO 0.02 K/mm3 (0.00-0.10); IMMATURE GRAN PERCENT AUTO 0 % (0-1); LYMPHOCYTES ABSOLUTE AUTO 1.48 K/mm3 (0.84-5.20); LYMPHOCYTES PERCENT AUTO 19 % (21-46); MONOCYTES ABSOLUTE AUTO 0.81 K/mm3 (0.16-1.47); MONOCYTES PERCENT AUTO 10 % (4-13); Mean Corpuscular HGB 31.5 pg (26.0-34.0); Mean Corpuscular HGB Conc 34.2 g/dL (31.5-36.5); Mean Corpuscular Volume 92 fL (80-100); Mean Platelet Volume 11.5 fL (9.1-12.4); NEUTROPHILS PERCENT AUTO 66 % (41-73); Platelet Count 214 K/mm3 (150-400); RDW Coefficient Variation 13.2 % (11.7-14.2); RDW Standard Deviation 44.6 fL (35.1-46.3); Red Blood Cell Count 4.28 M/mm3 (4.30-5.90); White Blood Cell Count 7.99 K/mm3 (4.00-11.30)
[2023-02-22 09:29] LABS: Bun/Creatinine Ratio 12.4 (12.0-20.0); Calcium, Blood 10.4 mg/dL (8.5-10.1); Creatinine, Blood 0.81 mg/dL (0.60-1.20); Magnesium, Blood 1.8 mg/dL (1.6-2.4); Potassium, Blood 3.5 mmol/L (3.5-5.5)
--- NOTE | 2023-02-22 12:00 | NUR ---
SHIFT SUMMARY ASSUMED CARE AT 0700. SLEEPING SUPINE WITH BILATERAL MITS FOR SAFTEY. DOES NOT RESPOND TO VERBAL STIMULI, GRIMICE WITH EXTREMETIES RETRACTING WITH STERNAL RUB. PUPILS RECACTIVE, RIGHT EYE WITH INWARD LEFT GAZE, RIGHT EYE MORE CENTER THAN LEFT. LEFT HAD CLENCHED AND WILL NOT OPEN. LEFT ARM CLENCHED AND 90 DEGREES, UNABLE TO RETRACT ARM PT APPEARS RIGID IN ARM. MOVES LEGS EQUALLY BILATERALLY. RA WITH SATS 95%. TREMULOUS AND ATTEMPTING TO PICK AT LINES THROUGH MITS. DISCUSSED WITH DR. SPENCER. 2MG ATIVAN GIVEN WITH LITTLE RESULT. UNABLE TO TAKE PO MEDS FOOD OR FLUIDS DUE TO AMS. STATUS CHANGED TO ICU, REPORT TO SET UP MACHINIST FOR IN HOUSE TRANSFER.
--- NOTE | 2023-02-22 12:30 | NUR ---
ARRIVAL TO ICU PT BROUGHT TO ICU AT THIS TIME. HE IS SOMNOLENT, RESPONDS TO PAINFUL STIMULI. PUPILS EQUAL, SLUGGISH TO RESPOND. R EYE HAS INWARD GAZE. COUGH/GAG INTACT. PT ON RA. SINUS RHTYHM ON MONITOR WITH RATE IN 70S, BP STABLE. 1:[address]
--- NOTE | 2023-02-22 13:53 | NUR ---
1340 PATIENT WAS FOUND HAVING A TREMOR MOVEMENTS. HE WAS MOVING HIS ARMS AND SHUFFLING HIS LEGS. WHEN ASKING HIM TO OPEN HIS EYES HE WOULD NOT. MANUALLY LIFTED HIS EYE LIDS AND HIS EYES WERE DEVIATED TO THE LEFT. HIS HEAD WAS MANUALLY MOVED LEFT AND RIGHT AND HIS EYES WOULD NOT MOVE PAST MIDLINE. HE WOULD RESPOND APPROPRIATELY TO PAINFUL STIMULI TO ALL FOUR EXTREMETIES WITHDRAWLING TO PAIN AND HE WOULD MOAN TO STERNAL RUB AND GRIMMACE HIS FACE TO PAINFUL STIMULI. CALLED DR SPENCER OF [facility]. SHE HAS ORDERED AND MRI W/O CONTRAST. WORKING ON MRI FORM WITH PRIMARY RN.
--- NOTE | 2023-02-22 16:57 | NUR ---
UPDATE PT TAKEN TO MRI. UNABLE TO COMPLETE STUDY PER SUBSTATION MAINTENANCE TECHNICIAN DUE TO TREMORS. PLAN FOR EEG TOMORROW AFTERNOON. DAUGHTER JONATHAN UPDATED VIA TELEPHONE.
--- NOTE | 2023-02-22 18:36 | NUR ---
SHIFT SUMMARY PT RESPONSIVE TO PAINFUL STIMULI. SINCE ARRIVAL TO ICU, HE HAS NOT BEEN COMMUNICATING OR FOLLOWING COMMANDS. HIS PUPILS ARE EQUAL, VARYING BETWEEN 3-5MM. PT TRANSITIONS BETWEEN BILATERAL L SIDE GAZE, R EYE HAVING L SIDE GAZE, AND NYSTAGMUS. COUGH/GAG INTACT. HE HAS BEEN ON RA WITH SPO2 >95%. SINUS RHYTHM ON MONITOR WITH RATE 80S-90S. PT HAS BEEN HYPERTENSIVE WITH SBP 150S-180S, MEDICATED PER EMAR. PER HOPSPITALIST, D5 1/2NS STOPPED WITH ORDER TO RESTART WHEN SBP <150. BOWEL TONES HYPOACTIVE, ABDOMEN SOFT. PT HAS AN ATTENDS IN PLACE WITH 2 INCONTINENT VOIDS. BED IN LOW POSITION. 1:1 SITTER AT BEDSIDE.
--- NOTE | 2023-02-22 19:00 | NUR ---
ASSUMED CARE OF PT AT 1900 PT LAYING IN BED DURING BEDSIDE SHIFT REPORT. PT NOT FOLLOWING COMMANDS. GAZE. MITTS IN PLACE ON BOTH HANDS. SALINE LOCKED AT THIS TIME. SEE FULL ASSESSMENT FOR FURTHER INFORMATION.
--- NOTE | 2023-02-22 22:00 | NUR ---
SPOKE WITH PT DAUGHTER FOR PT UPDATE. DAUGHTER CALLED AND STATED THAT SHE KNOWS THAT THE PT WOULD WANT TO BE DNR. CONVERSATION HAD BETWEEN PT AND DAUGHTER WAS HAD BEFORE RECENT EPISODES OF SI. THIS RN INFORMED DAUGHTER OF WHAT DNR AND DNI MEANT. DAUGHTER IS AWARE OF PT CONDITION AT THIS TIME. SHE WAS ALSO INFORMED THAT THE MRI WAS NOT COMPLETE D/T TREMORS. PT ALSO INFORMED OF PALIATIVE CARE CONSULT AND POSSIBLE NEEDS FOR CONVERSATIONS WITH DOCTOR AND APPROPRIATE PERSONEL TO CHANGE CODE STATUS IN THE FUTURE.
[2023-02-23] VITALS (24 sets, daily range): BP systolic 120–178; BP diastolic 57–105
[2023-02-23 03:33] LABS: BASOPHILS ABSOLUTE AUTO 0.03 K/mm3 (0.00-0.23); BASOPHILS PERCENT AUTO 0 % (0-2); EOSINOPHILS ABSOLUTE AUTO 0.29 K/mm3 (0.00-0.68); EOSINOPHILS PERCENT AUTO 4 % (0-6); Hemoglobin 13.6 g/dL (13.5-17.5); IMMATURE GRAN ABSOLUTE AUTO 0.02 K/mm3 (0.00-0.10); IMMATURE GRAN PERCENT AUTO 0 % (0-1); LYMPHOCYTES ABSOLUTE AUTO 1.58 K/mm3 (0.84-5.20); LYMPHOCYTES PERCENT AUTO 20 % (21-46); MONOCYTES ABSOLUTE AUTO 1.13 K/mm3 (0.16-1.47); MONOCYTES PERCENT AUTO 15 % (4-13); Mean Corpuscular HGB 31.5 pg (26.0-34.0); Mean Corpuscular Volume 93 fL (80-100); Mean Platelet Volume 11.3 fL (9.1-12.4); NEUTROPHILS ABSOLUTE AUTO 4.71 K/mm3 (1.96-9.15); NEUTROPHILS PERCENT AUTO 61 % (41-73); Platelet Count 225 K/mm3 (150-400); RDW Coefficient Variation 13.4 % (11.7-14.2); RDW Standard Deviation 45.7 fL (35.1-46.3); Red Blood Cell Count 4.32 M/mm3 (4.30-5.90); White Blood Cell Count 7.76 K/mm3 (4.00-11.30)
[2023-02-23 04:01] LABS: Bun/Creatinine Ratio 15.1 (12.0-20.0); Calcium, Blood 9.9 mg/dL (8.5-10.1); Creatinine, Blood 0.8 mg/dL (0.60-1.20); Potassium, Blood 3.2 mmol/L (3.5-5.5)
--- NOTE | 2023-02-23 05:10 | NUR ---
END OF SHIFT SUMMARY PT NON VERBAL AND DOES NOT OBEY COMMANDS. PT VERY RESTLESS THIS SHIFT. 2 DOSES OF 2 MG ATIVAN GIVEN THIS SHIFT WITH LITTLE AFFECTS ON PT TREMORS AND AGITATION. NO BLINK REACTION NOTED ON ALL ASSESSMENTS BY THIS RN. PUPILS REACT IRREGULARLY MOSTLY ON LEFT PUPIL WITH DILATION AND RETRACTION VISIBLE WHEN LIGHT KEPT ON PUPIL. HIPPUS IN NATURE. VERY LITTLE GAG RELFEX NOTED WITHIN LAST REASSESSMENT. WEAK COUGH NOTED WELL. PT UNABLE TO CLEAR SECRETIONS APPROPRIATELY. FREQUENT SUCTIONING REQUIRED. SPO2 >95% THIS SHIFT WITH NO DESATS. PT IS STILL IN MITTS D/T FREQUENT TREMULOUS MOVEMENT TO IV AREAS. GI,- NO BM THIS SHIFT. NO NUTRITIONAL NEEDS MET THIS SHIFT. NO ORDER TO DO SO WELL. TEMP BARRIGA CATHETER INSERTED D/T INCONTINENCE AND FREQUENT URINATION AT START OF SHIFT, HOWEVER, URINE OUTPUT IS SCANT AT 200 MLS THIS SHIFT. URINE IS NOW DARKER YELLOW ALMOST TEA COLORED. CARDIAC- BP IS DIFFICULT TO GET D/T PT TREMORS AND DOES NOT RELAX WHILE CUFF IS INFLATED. MEDICATED PER EMAR, RESULTS SEEN ONLY WITH HYDRALAZINE. SBP CURRENTLY 140'S. HR 90'S. D5 1/2 NS RUNNING AT 75 MLS/HR FOR 10 HOURS THIS SHIFT. 40 MEQ KCL RUNNING AT THIS TIME. WILL CONTINUE TO MONITOR UNTIL REPORT GIVEN TO AM RN.
--- NOTE | 2023-02-23 08:05 | NUR ---
INITIAL ASSESSMENT PATIENT SLEEPING SOUNDLY UPON ENTERING ROOM. PATIENT MINIMALLY RESPONSIVE TO NOXIOUS STIMULI. NORMAL FLEXION NOTED WITH NURSING CARE. PATIENT HAS MINIMAL GAG. R EYE HAS INWARD GAZE. HIPPUS NOTED IN BILAT EYES. DOLLS EYES NOTED. R ARM STIFF. PATIENT IS ABLE TO MOVE ALL EXTREMITIES. PATIENT AFEBRILE. NO SIGNS OF PAIN NOTED. PATIENT SATTING 90% AND GREATER ON RA. LUNGS CLEAR IN UPPER LOBES, DIM IN LOWER LOBES. PATIENT HAS WEAK COUGH AND IS A CONCERN FOR FUTURE ABILITY TO MANAGE SECRETIONS. PATIENT IN SR, HR IN THE 90S. SBP IN THE 140S. PATIENT NPO. DATE OF LAST BM UNKNOWN. LINUS HAS ABOUT 2 MLS OF SYEDA COLORED URINE OUT. SKIN PALE. SCATTERED BRUISES NOTED. RED SKINS/ KNEES. D5W 1/2 NS INFUSING AT 75 MLS/ HOUR. BED LOW, CALL LIGHT IN REACH. 1:1 SITTER AT BEDSIDE. CARE CONTINUES.
--- NOTE | 2023-02-23 08:27 | NUR ---
DR. SPENCER CALLED AND UPDATED ON PATIENT STATUS. INFORMED THAT PATIENT MENTATION HAS DECREASED FROM HIS PREVIOUS. INFORMED THAT PATIENT HAS MINIMAL GAG RESPONSE. INFORMED THAT PATIENT R EYE HAS INWARD GAZE AND THAT HIPPUS NOTED IN BOTH EYES. INFORMED THAT CONCERN ABOUT PATIENT ABILITY TO MAINTAIN AIRWAY IN THE FUTURE. INFORMED THAT PATIENT HAS TREMORS. INFORMED THAT MESSAGE LEFT WITH PALLIATIVE CARE TO SPEAK WITH DAUGHTER ABOUT CHANGE IN PATIENT STATUS AND FUTURE CARE. NO ORDERS RECEIVED AT THIS TIME.
--- NOTE | 2023-02-23 09:10 | NUR ---
Phone call with Joyce, pt's daughter. She identifies herself as primary decision maker, but states she does include her siblings in discussions. She states the patient himself, as well as Joyce and her siblings decided after his last hospitalization, that patient would want to be a DNR. Will request order for DNR from Dr. Goodman.
--- NOTE | 2023-02-23 12:24 | NUR ---
PATIENT HAS TEMP OF 100.3 DEGREES FAHRENHEI. HR IN THE LOW 100S. SBP IN THE 160S. NO CHANGES IN NEURO STATUS NOTED. EEG THIS AM. BLOOD SUGAR 130. URINE OUTPUT OF 2 MLS THIS ENTIRE SHIFT. DR. SPENCER UPDATED ON PATIENT STATUS. INFORMED OF SCANT URINE OUTPUT OF 2 MLS ONLY THIS SHIFT. INFORMED THAT FLUIDS REMAIN INFUSING DESPITE SBP OVER 165. DR. SPENCER OKAY TO KEEP FLUIDS GOING TO ENCOURAGE URINE OUTPUT. INFORMED THAT DOBHOFF AND NUTRITION HAS NOT BEEN STARTED YET WAITING FOR EEG RESULTS SO FAMILY CAN MAKE A DECISION ON PATIENT CARE. NO ORDERS RECEIVED AT THIS TIME. CARE CONTINUES.
--- NOTE | 2023-02-23 15:22 | NUR ---
Conference Call today with pt's daughter Joyce and son Evgeny. They understand the patient is back in ICU, and have discussed his current situation. They state they know for sure their dad has "given up" for quite some time. They are also sure the patient has no desire to give up drinking alcohol, or to live a live without alcohol. They also report having conversations with him when their mother (the patient's ) was dying of cancer. It was at that time the patient stated he wouldn't ever want to be fed by tube, and had repeated that sentiment to them at later times. They are aware we are awaiting MONIQUE results, and may have an MRI at some point. They have made their position clear, that if the patient doesn't wake up properly, or is no longer going to be able to care for himself, they would opt to make the patient comfort care. The team is aware. Will continue to support family and relay results or any changes in patient's condition to them. Plan for family conference again tomorrow in the am.
--- NOTE | 2023-02-23 16:30 | NUR ---
PATIENT AFEBRILE. HR IN THE LOW 100S. SBP IN THE 160S. NO NEURO CHANGES NOTED FROM PREVIOUS ASSESSMENT. CIWA SCORE OF 8. CARE CONTINUES.
--- NOTE | 2023-02-23 17:21 | NUR ---
Ethics consult order received and processed. Medical history reviewed, and social matrix and code status discussed with palliative care RN. From a clinical standpoint the principals outlook is reported to be grim. He has apparently voiced that he would not want prolonging interventions to be pursued in the event of medical decline. His domicile reports that even when not in a grossly depressed state the principal has expressed disinterest in receiving aggressive and disproportionate therapies, or treatments that would be of limited benefit. With the principal being presently non-responsive, the prognostic indicators being bleak, and the family on his behalf requesting that we forgo life preserving interventions, it would be ethically and legally appropriate for us to oblige. This course is ostensibly most in alignment with his dignity personhood, autonomy of choice, and what we comprehend in good juliet are his final wishes. Thank you for this consult. Tono Chan, PhD, NOLAN
[2023-02-23 18:13] LABS: Appearance, Urine Clear (Clear); Bilirubin, Urine Neg (Neg); Blood, Urine 5+ (Neg); Color, Urine Amber (P-Yellow); Glucose Qualitative, Urine Neg (Neg); Ketones, Urine Neg (Neg); Leukocyte Esterase, Urine 2+ (Neg); Nitrite, Urine Neg (Neg); Protein, Urine 2+ (Neg); Urobilinogen, Urine 2+ (Normal)
[2023-02-23 18:23] LABS: Bacteria Few /hpf; Red Blood Cells, Urine TNTC /hpf (0-2); Squamous Epithelial Cells Not Seen /hpf (Few)
--- NOTE | 2023-02-23 18:27 | NUR ---
SHIFT SUMMARY PATIENT REMAINED MINIMALLY RESPONSIVE TO NOXIOUS STIMULI AND NURSING CARE. PATIENT REMAINED WITH MINIMAL GAG. PATIENT RESTLESS A COUPLE OF TIMES THROUGHOUT SHIFT BUT REMAINED WITH EYES CLOSED. PATIENT MOSTLY SLEPT THIS SHIFT. TREMORS REMAINED; WORSE AT TIMES THAN OTHERS. CIWAS RANGED FROM 8 TO 11. PATIENT GIVEN PRN ATIVAN 1 MG IV OT THIS SHIFT FOR TREMORS ALONG WITH SWEATING ON FOREHEAD, FLUSHED FACE AND RESTLESSNESS. PATIENT REMAINED WITH INWARD GAZE OF R EYE AND WITH HIPPUS OF BOTH EYES. BODY REMAINS SLIGHTLY RIGID. PATIENT HAD TMAX OF 100.3 DEGREES FAHRENHEIT THIS SHIFT. PATIENT HAS REMAINED SATTING 90% AND GREATER ON RA. PATIENT HAS REMAINED WITH WEAK COUGH AND HAS NEEDED FREQUENT SUCTIONING TO KEEP AIRWAY CLEAR. PATIENT REMAINED SR TO ST, HR 90S TO LOW 100S. SBP 130S TO 170S. PATIENT GIVEN PRN HYDRALAZINE TWICE THIS SHIFT FOR HTN. NO BM THIS HSIFT. PATIENT REMAINS NPO. DR. SPENCER WOULD LIKE TO HOLD OFF ON PLACING DOBHOFF AND STARTING TF UNTIL ETHICS CONSULT ON PATIENT TOMORROW. BARRIGA FLUSHED THROUGHOUT THE DAY AND ONLY PUT OUT 2 MLS OF URINE. PATIENT LATER BLADDER SCANNED AND SHOWED OVER 400 MLS OF URINE IN BLADDER. BARRIGA REPLACED AND IS DRAINING GREAT NOW. 452 MLS OF SYEDA COLORED URINE OUT THIS SHIFT. NO CHANGES TO SKIN NOTED. D5W 1/2 NS REMAINS INFUSING AT 75 MLS/ HOUR. PATIENT RECEIVED 40 MEQ KCL REPLACEMENT THIS AM. EEG PERFORMED THIS SHIFT. URINE CULTURE SENT TO LAB THIS SHIFT. ETHICS CONSULTED THIS SHIFT. PALLIATIVE CARE NURSE HAS BEEN IN TOUCH WITH PATIENT'S DAUGHTER SEVERAL TIMES TODAY. BED LOW, CALL LIGHT IN REACH. PATIENT APPEARS COMFORTABLE AT THIS TIME. REPORT WILL BE GIVEN TO ASSUMING SAMPLE MOUNTER NURSE SHORTLY.
--- NOTE | 2023-02-23 19:16 | NUR ---
ASSUMED CARE OF PT AT 1900 PT SLEEPING IN BED DURING BEDSIDE SHIFT REPORT. VITALS WNL FOR PT AT THIS TIME. BARRIGA IN PLACE AND DRAINING TO GRAVITY. SEE FULL ASSESSMENT FOR FURTHER INFORMATION.
--- NOTE | 2023-02-23 19:25 | NUR ---
pt in icu minimal responsive. Team meeting to discuss pronosis and pt history of decline and substance abuse and suicidal expressions. pt kps score iw 30% and precarious from the substance abuse and lack of care . Brie adams called his children to review his care they state he would not want tube feeding or life prolonging care. [place] notified and pt made DNR. ethic consult done and prognositication. review of EEG. Pt suffering continue to increase. He is high rsik of seizures with further care and NG tube placement. Pt does not have quality of life or dignity. [facility] Will review with family and team in am and see if he has any improvement. physical assessment concer for tal debilitaed he looks and throid looks enlarged. He is requiring more suction and showing s/s of aspiration. He is temulous and frail. Will review labs in am and further assessment.
[2023-02-24] VITALS (16 sets, daily range): BP systolic 95–169; BP diastolic 56–93
[2023-02-24 03:58] LABS: BASOPHILS ABSOLUTE AUTO 0.05 K/mm3 (0.00-0.23); BASOPHILS PERCENT AUTO 1 % (0-2); EOSINOPHILS ABSOLUTE AUTO 0.22 K/mm3 (0.00-0.68); EOSINOPHILS PERCENT AUTO 3 % (0-6); Hematocrit 39.5 % (37.0-53.0); Hemoglobin 13.6 g/dL (13.5-17.5); IMMATURE GRAN ABSOLUTE AUTO 0.03 K/mm3 (0.00-0.10); IMMATURE GRAN PERCENT AUTO 0 % (0-1); LYMPHOCYTES ABSOLUTE AUTO 1.42 K/mm3 (0.84-5.20); LYMPHOCYTES PERCENT AUTO 20 % (21-46); MONOCYTES ABSOLUTE AUTO 1.11 K/mm3 (0.16-1.47); MONOCYTES PERCENT AUTO 16 % (4-13); Mean Corpuscular HGB 32.2 pg (26.0-34.0); Mean Corpuscular HGB Conc 34.4 g/dL (31.5-36.5); Mean Corpuscular Volume 94 fL (80-100); Mean Platelet Volume 11.8 fL (9.1-12.4); NEUTROPHILS ABSOLUTE AUTO 4.18 K/mm3 (1.96-9.15); NEUTROPHILS PERCENT AUTO 60 % (41-73); Platelet Count 201 K/mm3 (150-400); RDW Coefficient Variation 13.7 % (11.7-14.2); RDW Standard Deviation 47.2 fL (35.1-46.3); Red Blood Cell Count 4.22 M/mm3 (4.30-5.90); White Blood Cell Count 7.01 K/mm3 (4.00-11.30)
[2023-02-24 04:26] LABS: Bun/Creatinine Ratio 11.1 (12.0-20.0); Calcium, Blood 9.6 mg/dL (8.5-10.1); Creatinine, Blood 0.72 mg/dL (0.60-1.20); Potassium, Blood 3.1 mmol/L (3.5-5.5)
--- NOTE | 2023-02-24 05:49 | NUR ---
END OF SHIFT SUMMARY PT REMAINS UNRESPONSIVE WHEN SPOKEN TO. DOES NOT OPEN EYES AT ALL ANYMORE. PT DOES GUARD HIMSELF WHEN TOUCHED AND BECOMES STIFF AND TREMUOUS. DOES NOT SPEAK AT ALL. SPOKE TO DAUGHTER AND SHE STATED THAT SHE WILL TRY TO MAKE IT IN TO SEE PT TODAY. URINE OUTPUT REMAINS MINIMAL AND SYEDA IN COLOR. NO BM. SPO2 >90% ON RA. WEAK COUGH AND MINIMAL TO NO GAG REFLEX. EYES REMAIN HIPPUS AND DOLL EYES. D5 1/2 NS @ 75 MLS/HR. KCL 40 MEQ IV REPLACEMENT RUNNING AT THIS TIME. WILL CONTINUE TO MONITOR UNTIL REPORT GIVEN TO AM RN.
--- NOTE | 2023-02-24 12:23 | NUR ---
Conference call with pt's son and daughter Evgeny and Joyce. They are in agreement to change patient's status to comfort care. They are discussing taking pt home with [facility]. They chose [facility], as pt's recently passed with [facility]. Joyce, the pt's daughter will be caring for the patient at his home. Dr. Goodman is placing the comfort care order, and I informed CM and bedside RN.
--- NOTE | 2023-02-24 14:24 | NUR ---
"Spiritual Care | COmfort Care Visit. Pt. is alone and not responsive. Words of pastoral encouragement and care are given. Prayer and scrpture are shared with the Pt. Will remain avilable to the Pt. and any family who may visit."
--- NOTE | 2023-02-24 17:36 | NUR ---
SUMMARY PT MINIMALLY RESPONSIVE TODAY. WILL WITHDRAW FROM NOXIOUS STIMULUS. THIS EVENING HE IS BECOMING TREMULOUS AND STARTING TO PICK AT THINGS. PT WAS CHANGED TO COMFORT CARE TODAY. GAVE ONE DOSE OF ROXANOL WHEN PT WAS FIDGETING IN BED AND GRABBING AT HIPS. AFTER DOSE OF ROXANOL PT STARTED HAVING TWITCHING TO L SIDE OF FACE AND EYE'S DEVIATED TO THE R. PT WAS STILL ABLE TO PICK AT THINGS AND MOVE EXTREMITIES. GAVE A DOSE OF ATIVAN AND TWITCHING STOPPED. STILL KICKING LEGS ABOUT IN THE BED. NO SIGN OF DISTRESS.
--- NOTE | 2023-02-24 19:00 | NUR ---
ASSUMED CARE OF PT AT 1900 PT IS COMFORT CARE. RESTING IN BED NO TELEMETRY. Q2 REPOSITIONING AND MEDS PER EMAR.
--- NOTE | 2023-02-25 09:19 | NUR ---
PT IS COMFORT CARE. WITHDRAWS FROM NOXIOUS STIMULI SUCH ORAL CARE. WAS RESTLESS IN BED, GAVE ROXANOL AND NOW PT IS RESTING QUIETLY. LS COARSE, WEAK COUGH. BARRIGA IN PLACE D/T COMFORT CARE. DOES NOT APPEAR TO BE IN DISTRESS.
--- NOTE | 2023-02-25 10:30 | NUR ---
PT BEING TRANSFERED TO MEDICAL FLOOR ROOM 304. REPORT GIVEN TO SIENA WRIGHT.
--- NOTE | 2023-02-25 16:44 | NUR ---
SHIFT SUMMARY PATIENT TRANSFERED FROM ICU THIS MORNING. PATIENT ON COMFORT CARE. PATIENT NOTED TO HAVE RHYTHMIC MOVEMENT ON EYE BROWS OR FACIAL MOVEMENTS ESPECIALLY WITH STIMULATION. EYES DEVIATED TO THE R. PATIENT MOANING OCCASIONALLY AND AN OCCASIONAL COUGH. PATIENT EXTREMETIES TENSE. PATIENT REPOSITIONED FREQUENTLY TO PREVENT SKIN BREAKDOWN. PATIENT MEDICATED NEEDED FOR PAIN AND ANXIETY. PALLIATIVE CARE WORKING WITH [facility] FOR PATIENT TO GO HOME.
--- NOTE | 2023-02-26 04:41 | NUR ---
PATIENT IS MOANING AND SOMNOLENT. PLACED ON COMFORT CARE. WITH BARRIGA CATHETER DRAINING WELL. WITH PIV ON RIGHT FA PATENT AND INTACT. MEDICATED ACCORDINGLY. REPOSITIONED FOR HIS COMFORT. WILL CONTINUE TO MONITOR.
--- NOTE | 2023-02-26 10:55 | NUR ---
Bedside nurse reports significant change in pt today vs yesterday. Yesterday nursing reported pt had some tremors and fluttering eyes. Today pt did not respond when his leg was touched. No tremors or eye fluttering noted. Mouth breathing with eyes closed. No apnea noted during the visit in room. Pt's color is ashen today and clammy per nurse report. Pt has family flying in from out of state who will be here later today. Hospice discharge is already planned for tomorrow. Will reevaluate later today.
--- NOTE | 2023-02-26 13:44 | NUR ---
"Spiritual Care | Comfort Care Visit Pt. is somnolent and non responsive. No visitors are present. Pt. displays evidence of shallow breathing. Prayed over Pt. Will continue to be available to pt. a/o familly."
--- NOTE | 2023-02-26 18:43 | NUR ---
SHIFT SUMMARY PATIENT UNRESPONSIVE, ON COMFORT CARE. MEDICATED NEEDED WITH ATIVAN AND ROXINOL. FAMILY DO NOT PLAN TO COME IN AND SEE PATIENT. PATIENT TO DISCHARGE HOME TOMORROW ON HOSPICE. PATIENT DECLINED FROM YESTERDAY. PATIENT CLAMMY AND ASHEN IN COL0R. PATIENT TURNED FREQUENTLY AND SKIN CHECKED. PATIENT CONTINUES TO HAVE BARRIGA IN. FAMILY REQUESTING ABRRIGA TO STAY LONG PATIENT IS PRODUCING MODERATE AMOUNTS OF URINE. PALLIATIVE CARE AND CASE MANAGEMENT HANDLING TRANSFER TO HOME.
--- NOTE | 2023-02-27 04:36 | NUR ---
SHIFT SUMMARY MR CRUZ HAS BEEN UNRESPONSIVE THIS SHIFT. HE HAS BEEN UNRESPONSIVE DURING REPOSITIONING. HE HAS NOT LOOKED TO BE IN ANY DISCOMFORT. HE IS A MOUTH BREATHER AND HAS DEEP IRREGULAR RESPIRATIONS. BARRIGA CATHETER WITH LOW VOLUME SYEDA UOP. BED LOW, CALL LIGHT IN REACH. SEIZURE PADS ON RAILS.
[2023-02-27] MEDS ORDERED: ACET120S PR (07:54)
[2023-02-27] MEDS ORDERED: ATROPINE SULFATE2 M1 SL (07:54)
[2023-02-27] MEDS ORDERED: MORP20L SL (07:55)
[2023-02-27] MEDS ORDERED: TRANSDERM-SCOP1 EA13 TD (07:55)
[2023-02-27] MEDS ORDERED: LORA.5 PO (07:56)
--- NOTE | 2023-02-27 11:24 | NUR ---
PT D/C @1120 [facility]. PT TO RETURN TO HOME WITH HOSPICE. THIS RN SPOKE WITH COMFORT NURSE, JOI VIA TELEPHONE AND INFORMED OF TRANSPORT TIME. POL SIGNED PRIOR TO DISCHARGE PT DID NOT HAVE ONE ON CHART. IV IN RFA REMOVED W/O COMPLICATIONS. PT HAD INCREASED LABORED BREATHING UPON DISCHARGE.
--- NOTE | 2023-02-27 11:43 | NUR ---
MET WITH [facility] THIS MORNING. HIS SKIN WAS WARM TO THE TOUCH. BEDSIDE RN HAD JUST MEDICATED FOR PAIN. CAME BACK SHORTLY AFTER AND FILLED OUT A POLST FOR TRANSPORT. PATIENT LEFT UNIT VIA GURNEY.
== END 2023-02-27 11:22 | disposition hospice, home (50) | DRG 896 ==
LOC: ER 13:54 → ICUE 13:55 → ER 20:15 → ICUE 20:26 → PCU 02-15 15:01 → ICUE 02-15 15:05 → PCU 02-16 15:45 → MEDS 02-19 18:09 → PCU 02-19 18:11 → MEDS 02-19 18:32 → ICUE 02-19 21:31 → PCU 02-20 21:50 → ICUE 02-22 12:27 → MEDS 02-25 10:23
PROVIDERS: Family Medicine; Internal Medicine; Nurse Practitioner Acute Care; Student in an Organized Health Care Education/Training Program; ADMIT Internal Medicine
DX: F10.239 Alcohol dependence with withdrawal, unspecified (principal); G92.8 Other toxic encephalopathy; R45.851 Suicidal ideations; E87.0 Hyperosmolality and hypernatremia; Z51.5 Encounter for palliative care; Z66 Do not resuscitate; T50.901A Poisoning by unspecified drugs, medicaments and biological substances, accidental (unintentional), initial encounter; R56.9 Unspecified convulsions; F32.9 Major depressive disorder, single episode, unspecified; I10 Essential (primary) hypertension; E87.6 Hypokalemia; E83.52 Hypercalcemia; Y90.8 Blood alcohol level of 240 mg/100 ml or more; F10.229 Alcohol dependence with intoxication, unspecified; Z91.51 Personal history of suicidal behavior
CPT/HCPCS: 36415; 51701; 51702; 70450; 80048; 80053; 81001; 82330; 82947; 83735; 84132; 84295; 84443; 85025; 87086; 93005; 93010; 95819; 96361; 96365; 96366; 96367; 96368; 96375; 96376; 99285-25; A9270; C9113; G0378; G0480; J0360; J1630; J1650; J1953; J2060; J3411; J3475; J3480; J7030; J7042; J7050; J7120